=== PATIENT | female | born 1990 | race African-American/Black ===

== ENCOUNTER 2023-03-17 15:30 | Outpatient (RCR) | payer MEDICAID, SELFPAY | END 2023-03-27 23:59 | LOC: NS 15:30 | PROVIDERS: PCP Family Medicine; Referring Provider Nurse Practitioner Family; Visit Provider Nurse Practitioner Family | DX: Z71.3 Dietary counseling and surveillance (principal); E66.9 Obesity, unspecified; Z68.34 Body mass index [BMI] 34.0-34.9, adult; E28.2 Polycystic ovarian syndrome | CPT/HCPCS: 97802; 97803 ==

== ENCOUNTER 2023-04-16 10:41 | Outpatient (RCR) | payer MEDICAID, SELFPAY | END 2023-04-27 23:59 | LOC: NS 10:41 | PROVIDERS: PCP Family Medicine; Referring Provider Nurse Practitioner Family; Visit Provider Nurse Practitioner Family | DX: Z71.3 Dietary counseling and surveillance (principal); E28.2 Polycystic ovarian syndrome; E66.9 Obesity, unspecified; Z68.34 Body mass index [BMI] 34.0-34.9, adult ==

== ENCOUNTER 2023-06-03 02:29 | Emergency (ER) | payer MEDICAID, SELFPAY ==
[2023-06-03 02:30] VITALS: BP 145/89; PULSE 104; RESP 18; TEMP 36.2; O2SAT 100; BMI 33.6
--- NOTE | 2023-06-03 03:19 | EDS_ITS ---
HPI HPI - GI History of Present Illness Chief Complaint: Abd Pain Informant: patient Abdominal Pain/Flank Pain Onset: - (JPTA) Context: Sudden Onset Timing: - (once, constant, resolved after 10-20 min) Quality: - ( severe pain ) Location: Diffuse (periumbilical, w/ radiation into entire mid-low back) Current Severity: Gone Maximum Severity: 10/10 Worsened by: Nothing Relieved by: Nothing Nausea/Vomiting/Emesis GI Symptom: Negative for Nausea or Vomiting Diarrhea/Melena/Hematochezia GI Symptom: Negative for Diarrhea, Melena or Hematochezia Associated Symptoms Associated Symptoms: Negative for Dysuria, Frequency or Hematuria Narrative Narrative: 33-year-old female had a severe episode of diffuse abdominal pain radiating into her back that started 10 or 20 minutes ago, about a minute or 2 after she had what she thought was a normal bowel movement. Last meal was 4 or 5 hours prior. She has had a couple of other episodes of this within the past several weeks or month, but this 1 was more severe. Completely resolved now and she feels fine, she states it completely resolved upon arriving to the emergency room here. Is the first time she has been seen for it. The other episodes did not occur just after having a bowel movement like this winded. [facility] Medical History PCOS (polycystic ovarian syndrome) Home Medications bupropion HCl 150 mg tablet,12 hr sustained-release 150 mg PO DAILY 06/03/23 [History Last Taken Unknown] drospirenone 3 mg-ethinyl estradiol 0.02 mg tablet (Loryna (28)) 1 tab PO DAILY 06/03/23 [History Last Taken Unknown] metformin 500 mg tablet 500 mg PO DAILY 06/03/23 [History Last Taken Unknown] phentermine 37.5 mg tablet 37.5 mg PO DAILY 06/03/23 [History Last Taken Unknown] Allergy/AdvReac Type Severity Reaction Status Date / Time No Known Allergies Allergy Verified 06/03/23 02:33 Social History Smoking Status: Never smoker ROS ROS ED Constitutional Constitutional ED: Denies chills or fever(s) Eyes Eyes: Denies change in vision or diplopia ENT ENT ED: Denies rhinorrhea or sore throat Cardiovascular Cardiovascular: Denies chest pain or palpitations Respiratory/Chest Respiratory/Chest: Denies cough or dyspnea Gastrointestinal Gastrointestinal: Reports abdominal pain; Denies diarrhea, nausea or vomiting Genitourinary Genitourinary ED: Denies dysuria or hematuria Musculoskeletal Musculoskeletal: Reports back pain; Denies neck pain Integumentary Denies abscess or rash Neurologic Neurologic: Denies headache(s), paresthesias or weakness Psychiatric Psychiatric: Denies anxiety or suicidal thoughts EXAM Physical Exam Const Vital Signs: 06/03/23 02:30 Temperature 97.1 F L Temperature Source Temporal Pulse Rate 104 H Respiratory Rate 18 Blood Pressure 145/89 H Blood Pressure Mean 107 Pulse Ox 100 Oxygen Delivery Method Room Air Positive well nourished, well developed and obese General Appearance ED: well developed and NAD Nutritional Appearance: obese HEENT Reports moist mucous membranes normocephalic and atraumatic Eyes PERRL and EOMs intact bilaterally Neck full ROM and supple Resp normal respiratory effort and clear to auscultation bilaterally Cardio regular rate, regular rhythm and no murmurs GI non-tender and non-distended Auscultation: normoactive bowel sounds Palpation: soft Back/Spine no CVA tenderness General Back: other FROM Extremity normal to inspection General Extremety ED: Negative for edema, pulses abnormal or tenderness General Extremity: Negative for edema or pulses abnormal Neuro oriented x3, CN's II-XII intact bilaterally and no sensory deficits noted Sensorium / Orientation: awake and alert Motor Exam: strength 5/5 throughout Skin no rashes or lesions noted and no wounds MDM MDM MDM Narrative Medical decision making narrative: Patient is asymptomatic right now. In considering the possibility of biliary colic, I did a bedside ultrasound with our ED screening ultrasound machine since the patient presents around 3 AM and ultrasound is not available, and her benign abdomen with resolution of symptoms is not an indication for emergent CT right now although that was considered. On my interpretation, my right upper quadrant bedside ultrasound shows layering cholelithiasis. She has mild discomfort with performing sonographic Delgado, but has no true clinical Delgado sign. I do not see any thickening of the gallbladder wall or pericholecystic fluid. She does not have a classic story for biliary colic; she had last eaten for 5 hours prior to the onset of pain, it occurred just after a bowel movement, and it only lasted 10 or 20 minutes before completely resolving. However, it is possible that the nature of the discomfort was related to the cholelithiasis and it could have been based on body position changes if the stones are mobile. Her labs are normal including liver enzymes and lipase, and is negative ruling out ectopic. Since she is totally asymptomatic I do not think we need to admit her to the hospital or discussed the possibility of emergency/urgent surgery. She is in agreement. I will refer her to surgery as an outpatient and we discussed reasons to return. She is comfortable with that plan. History & Record Review Additional record(s) reviewed:: Other (imaging of abd: no priors) Lab Data Attestation: I reviewed the patient's lab results. Labs: Laboratory Results - last 24 hr 06/03/23 02:53 WBC 8.2 RBC 5.40 Hgb 12.6 Hct 39.7 MCV 73.5 L MCH 23.3 L MCHC 31.7 L RDW Std Deviation 42.9 RDW Coeff of Ida 16.5 H Plt Count 397 MPV 10.1 Immature Gran % (Auto) 0.400 Neut % (Auto) 45.7 L Lymph % (Auto) 45.4 H Stonewall % (Auto) 6.3 Eos % (Auto) 1.6 Baso % (Auto) 0.6 Absolute Neuts (auto) 3.8 Absolute Lymphs (auto) 3.73 Nucleated RBC % 0 Sodium 138 Potassium 3.4 L Chloride 107 Carbon Dioxide 25.0 Anion Gap 6 BUN 12 Creatinine 0.82 Estim Creat Clear Calc 109.19 Est GFR (MDRD) Af Amer 104 Est GFR (MDRD) Non-Af 86 BUN/Creatinine Ratio 14.7 Glucose 123 H Calcium 9.2 Total Bilirubin 0.20 AST 26 ALT 37 Alkaline Phosphatase 81 Total Protein 7.6 Albumin 3.5 Globulin 4.1 Albumin/Globulin Ratio 0.9 Lipase 43 Serum , Qual NEGATIVE Discharge Plan Triage Chief Complaint: Abd Pain ED Provider: Brad Nguyen Dx/Rx/DC Orders Clinical Impression: Diffuse abdominal pain, Cholelithiasis Instructions: Gallstones Dc Prescriptions: No Action bupropion HCl 150 mg tablet sustained-release 12 hr 150 mg PO DAILY Patient Comments: TAKE 1 TABLET BY MOUTH TWICE DAILY drospirenone-ethinyl estradiol [Loryna (28)] 3-0.02 mg tablet 1 tab PO DAILY Patient Comments: TAKE 1 TABLET BY MOUTH ONCE DAILY metformin 500 mg tablet 500 mg PO DAILY phentermine 37.5 mg tablet 37.5 mg PO DAILY Patient Comments: TAKE 1 TABLET BY MOUTH ONCE DAILY BEFORE BREAKFAST FOR 90 DAYS Primary Care Provider: Jenifer Carreon Referrals: Collin Varner MD [Med Staff - Active Staff] - As soon as possible (call for appt) Jenifer Carreon PA-C [Primary Care Provider] - Disposition Disposition: Home, Self Care
[2023-06-03 03:26] LABS: Absolute Lymphocyte Count 3.73 X10^3/uL (0.83-4.51); Absolute Neutrophil Count 3.8 X10^3/uL (2.0-7.7); Basophil# 0.05 X10^3/uL; Basophil% 0.6 % (0-1); Eosinophil# 0.13 X10^3/uL; Eosinophils% 1.6 % (0-5); Hematocrit 39.7 % (37-47); Hemoglobin 12.6 g/dL (12.0-15.0); Lymphocyte # 3.73 X10^3/ul (0.83-4.51); Lymphocyte % 45.4 % (19-41); Mean Corp Hgb Conc 31.7 g/dL (32-36); Mean Corpuscular Hgb 23.3 pg (27.0-32.0); Mean Corpuscular Volume 73.5 fL (81-99); Mean Platelet Vol. 10.1 fl (6.2-12.0); Monocyte# 0.52 X10^3/uL; Monocyte% 6.3 % (0-10); NRBC Flagged by Analyzer 0 % (0-5); Neutrophil # 3.75 X10^3/uL (2.7-7.7); Neutrophil % 45.7 % (47-70); Platelet Count 397 K/mm3 (150-450); RBC Distribution Width CV 16.5 % (11.6-14.6); RBC Distribution Width SD 42.9 fl (35.1-43.9); White Blood Count 8.2 K/mm3 (4.4-11.0)
--- OUTSIDE RECORDS SUMMARY | 2023-06-03 03:28 | XMS RPT_ITS | CCD ---
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 medication. Phentermine is a controlled substance. It is FDA approved for up to 3 months. Prescriptions may be refilled only a limited number of times. Keep a written list of all of your prescription and nonprescription ([id number]) medicines, in addition to vitamins, minerals, or other dietary supplements. If you are taking the extended-release (long-acting) tablets, do not split, chew, or crush them tablet. There are some tablets that can be crushed and mixed with food Alcohol can make the side effects of phentermine worse How should I monitor while on this medication? Please check your blood pressure (BP) and resting pulse weekly (twice a week in the first 2 weeks). If the BP is over 140/90 (either one), or if the resting pulse is over 96 per minute (count for 10 seconds and multiply by 6), then stop the medication and call your doctor. Continue to improve your dietary and physical activity habits as the combination works best while on this medication. Start out by taking the medication in the morning at least 30 minutes prior to meals. If the effect seems to wear off by dinner time, try taking it later in the morning, but taking too late may result in trouble falling asleep. Be sure to eat regular meals. Less hunger does not make it appropriate to skip meals. Monitor your caffeine intake and use of decongestants as they may worsen the effects of phentermine Make sure to have an eye exam, including the pressure in your eyes (intra-ocular pressure), once a year. What should I do if I forget a dose? Skip the missed dose and continue your regular dosing schedule the next day. Do not take a double dose to make up for a missed one. Sources [facility] Consumer Medication Info: http://www.ncbi.nlm.nih.gov/pubm edhealth/KEG2391506/ AMA patient handouts: http://www.amaassn.org/ama1/pub/ upload/mm/433/phrxsurgery.pdf Drugs.com: http://www.drugs.com/pro/phenter mine.html documented in this encounter [facility] 03-12-2023 History of Presen t illness Narrative Some documentation from previous visit of 01/30/2023 was copied and pasted, documentation has been reviewed and edited as necessary for today's visit. Patient Summary: Krys is a 32 year old Female who presents for follow-up evaluation of obesity/weight management to treat PCOS, hyperinsulinemia, possible ALEX, elevated LDL and prevent related co-morbidities. In our previous visits we have discussed lifestyle intervention including a nutrition recommendations and physical activity optimization. Her last office visit was 1.5 months ago. Assessment/plan from last visit: Considering early next year - would like to lose more weight before trying for HSAT - they have not contacted her as of yet Whole foods Consult [facility] nutrition - appointment done Metformin 1 gm twice a day She would like to wean off of sertraline if possible - taking 75 mg and plans to decrease to 50 mg Interval History B - 8 or 11 am Protein shake 30 gm 1 sugar S - none L - 1200-2 pm - egg bites large size S - 4 pm grapes D - 1830-8pm protein or tacos or fish with rice and vegetables or salad with rice and protein S - sometimes cookie and milk or ice cream Craving sweets Fluids - water, occasional diluted grape juice. Sprite if eating out She feels the medication is helping to decreasing appetite, not wanting constantly to eat. 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 Sleep consult Weight loss since last vist: 7 lb for total of 14 lbs 03/12/2023 198 lb BMI 32.95 phentermine 37.5 mg 01/30/2023 205 lb bupropion 150 mg bid 12/26/2022 212 lb BMI 35.28 WC 49in Metformin to 1 gm bid 5% weight loss = 202 lbs, 10% weight loss = 191 lbs Metformin Start date: ?12/26/2022 Start weight: ?212 lbs. Dose:1 gm twice a day -- Patient reports suppression of her appetite and increase in satiety since starting -- Patient reports no side effects after starting metformin Estimated Creatinine Clearance: 117.2 mL/min (based on SCr of 0.77 mg/dL). PAST MEDICAL HISTORY Diagnosis Date Blood loss anemia transfusion x 2 Depression with anxiety Elevated LDL cholesterol level Hyperinsulinemia 2022 PCOS (polycystic ovarian syndrome) depression (spontaneous vaginal delivery) Current Outpatient Medications Medication Sig Dispense Refill buPROPion SR (WELLBUTRIN SR) 150 mg 12 hr tablet Take 1 tablet by mouth two times a day. 180 tablet 0 sertraline (ZOLOFT) 50 mg tablet Take 50 mg by mouth once daily. 1.5 daily metFORMIN (GLUCOPHAGE) 500 mg tablet Take 1 tablet by mouth twice daily with meals. 180 tablet 3 Drospirenone-Ethinyl Estradiol (LOU, 28,) 3-0.02 mg per tablet Take 1 tablet by mouth once daily. 84 tablet 3 No current facility-administered medications for this visit. Current Contraception: combined hormonal contraceptives Obesity ROS/ FHx GEN: Fatigue:yes CV: HTN: yes gestational hypertension MSK: Joint Pain:yes Symptoms of PCOS: yes NEURO: Migraines/SCOTT: yes, SCOTT intermittently for months, sometimes in the morning BP 116/82 Pulse 97 Resp 18 Wt 198 lb (89.8 kg) LMP 02/28/2023 (Exact Date) BMI 32.95 kg/m Anti-Obesity Medications >Phentermine: No uncontrolled HTN, No CVD Hx or hx of seizure disorder. No MAOI inhibitor use. No drug abuse hx. Crcl > 15. Appointment on 01/16/2023 Component Date Value Ref Range Status Vitamin D 25 Hydroxy 01/16/2023 34.2 31.0 - 80.0 ng/mL Final Insulin 01/16/2023 41.7 (H) 3.0 - 25.0 mU/L Final Hemoglobin A1C 01/16/2023 5.6 4.3 - 5.6 % Final Estimated Average Glucose 01/16/2023 114 mg/dL Final Cholesterol, Total 01/16/2023 212 (H) <200 mg/dL Final Triglyceride 01/16/2023 142 <150 mg/dL Final HDL Cholesterol 01/16/2023 63 >39 mg/dL Final Non HDL Cholesterol 01/16/2023 149 (H) <130 mg/dL Final Fasting Time 01/16/2023 12 hrs Final VLDL Cholesterol 01/16/2023 28 <30 mg/dL Final TC:HDL Ratio 01/16/2023 3.37 <5.10 Final LDL Cholesterol 01/16/2023 121 (H) <100 mg/dL Final LDL:HDL Ratio 01/16/2023 1.92 <2.54 Final Protein, Total 01/16/2023 7.5 6.3 - 8.0 g/dL Final Albumin 01/16/2023 4.2 3.9 - 4.9 g/dL Final Calcium, Total 01/16/2023 9.3 8.5 - 10.2 mg/dL Final Bilirubin, Total 01/16/2023 0.3 0.2 - 1.3 mg/dL Final Alkaline Phosphatase 01/16/2023 92 34 - 123 U/L Final AST 01/16/2023 13 13 - 35 U/L Final ALT 01/16/2023 13 7 - 38 U/L Final Glucose 01/16/2023 99 74 - 99 mg/dL Final BUN 01/16/2023 11 7 - 21 mg/dL Final Creatinine 01/16/2023 0.77 0.58 - 0.96 mg/dL Final Sodium 01/16/2023 137 136 - 144 mmol/L Final Potassium 01/16/2023 4.1 3.7 - 5.1 mmol/L Final Chloride 01/16/2023 104 97 - 105 mmol/L Final CO2 01/16/2023 20 (L) 22 - 30 mmol/L Final Anion Gap 01/16/2023 13 9 - 18 mmol/L Final Estimated Glomerular Filtration Ra* 01/16/2023 105 >=60 mL/min/1.73m Final TSH 01/16/2023 1.130 0.270 - 4.200 mIU/L Final Iron 01/16/2023 47 41 - 186 ug/dL Final TIBC 01/16/2023 455 (H) 232 - 386 ug/dL Final Transferrin Saturation 01/16/2023 10.3 (L) 15.0 - 57.0 % Final Ferritin 01/16/2023 29.9 14.7 - 205.1 ng/mL Final Hospital Outpatient Visit on 12/20/2022 Component Date Value Ref Range Status Radiology Result 12/20/2022 ACTIONABLE (Actionable) Final Appointment on 12/12/2022 Component Date Value Ref Range Status WBC 12/12/2022 7.59 3.70 - 11.00 k/uL Final RBC 12/12/2022 5.21 (H) 3.90 - 5.20 m/uL Final Hemoglobin 12/12/2022 12.9 11.5 - 15.5 g/dL Final Hematocrit 12/12/2022 39.9 36.0 - 46.0 % Final MCV 12/12/2022 76.6 (L) 80.0 - 100.0 fL Final MCH 12/12/2022 24.8 (L) 26.0 - 34.0 pg Final MCHC 12/12/2022 32.3 30.5 - 36.0 g/dL Final RDW-CV 12/12/2022 14.9 11.5 - 15.0 % Final Platelet Count 12/12/2022 314 150 - 400 k/uL Final MPV 12/12/2022 9.6 9.0 - 12.7 fL Final Absolute nRBC 12/12/2022 <0.01 <0.01 k/uL Final Results Only on 12/07/2022 Component Date Value Ref Range Status Slitter Creaser Slotter Helper 12/07/2022 Final Value:Provider JOSE lombardi patient KRYS HUANG has not started their Doris program, time has . Doris program: [facility] WHAT TO EXPECT AT YOUR APPOINTMENT Assessment/Plan: Krys Huang is a 32 year old yo with Class II obesity who presented today for follow up for supervised weight loss to treat and prevent related co-morbidities. ASSESSMENT/PLAN: 1. PCOS (polycystic ovarian syndrome) - ICD9: 256.4, ICD10: E28.2 (primary diagnosis) - Metformin 1 gm twice a day - PHENTERMINE 37.5 MG TABLET - Nutrition consult Whole food balanced protein low-carb nutrition 2. Hyperinsulinemia - ICD9: 251.1, ICD10: E16.1 - Metformin - Nutrition consult Whole food balanced protein low-carb nutrition 3. Elevated LDL cholesterol level - ICD9: 272.0, ICD10: E78.00 Whole food balanced protein low-carb nutrition 4. Depression with anxiety - ICD9: 300.4, ICD10: F41.8 - continue sertraline for now - BUPROPION HCL SR 150 MG TABLET,12 HR SUSTAINED-RELEASE 5. Loud snoring - ICD9: 786.09, ICD10: R06.83 - HSAT - CONSULT TO SLEEP MEDICINE - ADULT - PHENTERMINE 37.5 MG TABLET 6. Daytime sleepiness - ICD9: 780.54, ICD10: R40.0 - HSAT - CONSULT TO SLEEP MEDICINE - ADULT - PHENTERMINE 37.5 MG TABLET 7. Craving for particular food - ICD9: 783.9, ICD10: R63.8 - BUPROPION HCL SR 150 MG TABLET,12 HR SUSTAINED-RELEASE - PHENTERMINE 37.5 MG TABLET 8. Class 1 obesity with body mass index (BMI) of 34.0 to 34.9 in adult, unspecified obesity type, unspecified whether serious comorbidity present - ICD9: 278.00, V85.34, ICD10: E66.9, Z68.34 Weight decreasing - continue metformin 1 gm twice a day - BUPROPION HCL SR 150 MG TABLET,12 HR SUSTAINED-RELEASE - CONSULT TO SLEEP MEDICINE - ADULT - PHENTERMINE 37.5 MG TABLET Phentermine. Risk/benefits discussed at length including potential side effects of increased anxiety, insomnia, increased heart rate, and increased blood pressure. I have asked the patient to monitor blood pressure and avoid any stimulants (in the form of caffeinated beverages like coffee, tea, sports drinks) initially. Patient denies history of arrhythmias, coronary artery disease (atherosclerosis), heart failure, pulmonary hypertension, stroke, valvular heart disease (prolapse, regurgitation, stenosis). The patient is currently enrolled in a diet and exercise program The patient has no known history of contraindications The patient is free from drug or ETHO abuse The patient is not or and is aware not to become while using this medication [place] was reviewed. PDMP website checked and validated. All prescriptions have been APPROPRIATELY filled. No suspicious activity was identified. Prescription instructions reviewed with patient as applicable. Potential red flag symptoms discussed with the patient. Reviewed appropriate action plan to take if red flag symptoms occur. Patient agreeable to treatment plan. Follow up in 2-3 months Paola Reid APRN.YING, Advanced Education from the [employer] Medical Decision Making: Problems: Moderate: 1+ chronic illnesses with change Risk: Moderate: Drug management Medical Decision Making Level: 4 - Moderate documented in this encounter [facility] 03-12-2023 Miscellaneous Notes Patient called back and is able to come at 1230 today now. Brittney Garvin RN Patient called. She is unable to come in earlier today for her wt management visit. No other openings from now until provider's leave. Please advise if patient can still come in at scheduled time today. Yeimy Sams RN documented in this encounter [facility] 03-06-2023 Note HNO ID: [id number] Author: Delfino Rodriguez MD Service: ? Author Type: Physician Type: Progress Notes Filed: 03/06/2023 2:34 PM Note Text: Krys is a 32 year old who presents today for an endometrial biopsy for abnormal uterine bleeding. test: negative UNIVERSAL PROTOCOL / SAFETY CHECKLIST Procedure to be Performed: EMB Sign In: A Moment of CARE was completed. Personnel directly involved with the procedure wore the appropriate PPE (Personal Protective Equipment). Patient/Surrogate Stated/Verified: PATIENT VERIFIED(optional for EMERGENT procedures): Patient name, Date of , Relevant allergies, and The intended procedure Time Out Communication: Intended patient and procedure match the source documents. Consent documented and matches the intended procedure. Sign Out: SIGN OUT (optional for EMERGENT procedures): All specimen containers correctly labeled. PROCEDURE: EXTERNAL GENITALIA: Normal in appearance without lesions VAGINA: Normal in appearance without lesions BIOPSY: Speculum placed into the vagina with excellent visualization of the cervix. Cervix cleaned with betadine. Uterus sounded to 7.5 cm. Pipelle inserted into the uterus without difficulty and endometrial biopsy obtained. Specimen labeled and sent to pathology. Hemostasis achieved. Procedure Summary: Patient tolerated procedure well. ASSESSMENT: abnormal uterine bleeding PLAN: Specimens labeled and sent to Pathology. Will notify patient of results in 1-2 weeks. Delfino Grullon MD [facility] 03-06-2023 Instructions Sirena Mckeon Ma - 03/06/2023 1:58 PM EST YOUR RECOVERY After your biopsy you may have: Vaginal bleeding (less than a normal menstrual period) Mild cramping Do NOT put anything in the vagina for 1 week after your endometrial biopsy. This includes: tampons douches and refraining from having sexual intercourse If you have any discomfort, you may take an over the counter pain medication (motrin, advil, ibuprofen, tylenol, etc). If this does not relieve your discomfort, contact the office. It is okay to wear a sanitary pad until the discharge and spotting stops. RISKS Although problems seldom occur with endometrial biopsies, there can be some complications. You may feel faint during and shortly after the procedure as well as have some bleeding after the procedure. There is also a risk of infection after the procedure. These complications are rare and can be easily treated. You should contact you doctor is you have any of the following: Heavy bleeding (more than your normal period) Bleeding with clots Severe abdominal pain Fever (more than 100.4F) Foul smelling vaginal discharge RESULTS We will have the results of your biopsy in 1-2 weeks. If you do not hear the results of your biopsy after 2 weeks, please contact the office for the results. If you have any additional questions or concerns please do not hesitate to contact the office. documented in this encounter [facility] 03-06-2023 History of Presen t illness Narrative Krys is a 32 year old who presents today for an endometrial biopsy for abnormal uterine bleeding. test: negative UNIVERSAL PROTOCOL / SAFETY CHECKLIST Procedure to be Performed: EMB Sign In: A Moment of CARE was completed. Personnel directly involved with the procedure wore the appropriate PPE (Personal Protective Equipment). Patient/Surrogate Stated/Verified: PATIENT VERIFIED(optional for EMERGENT procedures): Patient name, Date of , Relevant allergies, and The intended procedure Time Out Communication: Intended patient and procedure match the source documents. Consent documented and matches the intended procedure. Sign Out: SIGN OUT (optional for EMERGENT procedures): All specimen containers correctly labeled. PROCEDURE: EXTERNAL GENITALIA: Normal in appearance without lesions VAGINA: Normal in appearance without lesions BIOPSY: Speculum placed into the vagina with excellent visualization of the cervix. Cervix cleaned with betadine. Uterus sounded to 7.5 cm. Pipelle inserted into the uterus without difficulty and endometrial biopsy obtained. Specimen labeled and sent to pathology. Hemostasis achieved. Procedure Summary: Patient tolerated procedure well. ASSESSMENT: abnormal uterine bleeding PLAN: Specimens labeled and sent to Pathology. Will notify patient of results in 1-2 weeks. Delfino Grullon MD documented in this encounter [facility] 01-30-2023 Note HNO ID: [id number] Author: Paola Reid APRN.HIGHWAY INSPECTOR Service: ? Author Type: Nurse Practitioner Type: Progress Notes Filed: 01/30/2023 8:23 PM Note Text: Some documentation from previous visit of 12/26/2022 was copied and pasted, documentation has been reviewed and edited as necessary for today's visit. Patient Summary: Krys is a 32 year old Female who presents for follow-up evaluation of obesity/weight management to treat PCOS, hyperinsulinemia, possible ALEX, elevated LDL and prevent related co-morbidities. In our previous visits we have discussed lifestyle intervention including a nutrition recommendations and physical activity optimization. Her last office visit was 1 month ago. Assessment/plan from last visit: discontinued HSAT - needs to schedule Whole foods Consult [facility] nutrition - appointment 02/10/2023 Metformin She would like to wean off of sertraline if possible. Interval History Has stopped drinking coffee due to amount of creamer she likes B - Protein shake 20 gm 1 sugar S - varies leftovers L - leftovers or tuna or oatmeal or shrimp/chicken salad or egg with toast S - watermelon or dry cereal with milk D - protein or tacos or fish with rice and vegetables S - not often or ice cream Craving sweets Fluids - water, grape juice She feels the medication is helping to decreasing appetite, not wanting constantly to eat. 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 HSAT Weight loss since last vist: 7 lb 01/30/2023 205 lb 12/26/2022 212 lb BMI 35.28 WC 49in Metformin increased 1 gm bid 5% weight loss = 202 lbs, 10% weight loss = 191 lbs Metformin Start date: ?12/26/2022 Start weight: ?212 lbs. Dose:1 gm twice a day -- Patient reports suppression of her appetite and increase in satiety since starting -- Patient reports no side effects after starting metformin Estimated Creatinine Clearance: 120.4 mL/min (based on SCr of 0.77 mg/dL). PAST MEDICAL HISTORY Diagnosis Date Blood loss anemia transfusion x 2 Depression with anxiety Elevated LDL cholesterol level Hyperinsulinemia 2022 PCOS (polycystic ovarian syndrome) depression (spontaneous vaginal delivery) Current Outpatient Medications Medication Sig Dispense Refill sertraline (ZOLOFT) 50 mg tablet Take 50 mg by mouth once daily. 1.5 daily metFORMIN (GLUCOPHAGE) 500 mg tablet Take 1 tablet by mouth twice daily with meals. 180 tablet 3 Drospirenone-Ethinyl Estradiol (LOU, 28,) 3-0.02 mg per tablet Take 1 tablet by mouth once daily. 84 tablet 3 No current facility-administered medications for this visit. Current Contraception: combined hormonal contraceptives Obesity ROS/ FHx GEN: Fatigue:yes CV: HTN: yes gestational hypertension MSK: Joint Pain:yes Symptoms of PCOS: yes NEURO: Migraines/SCOTT: yes, SCOTT intermittently for months, sometimes in the morning BP 110/72 Pulse 78 Resp 16 Ht 5' 5 (1.651 m) Wt 205 lb (93 kg) LMP 01/04/2023 (Exact Date) SpO2 98% No BMI 34.11 kg/m? Appointment on 01/16/2023 Component Date Value Ref Range Status Vitamin D 25 Hydroxy 01/16/2023 34.2 31.0 - 80.0 ng/mL Final Insulin 01/16/2023 41.7 (H) 3.0 - 25.0 mU/L Final Hemoglobin A1C 01/16/2023 5.6 4.3 - 5.6 % Final Estimated Average Glucose 01/16/2023 114 mg/dL Final Cholesterol, Total 01/16/2023 212 (H) <200 mg/dL Final Triglyceride 01/16/2023 142 <150 mg/dL Final HDL Cholesterol 01/16/2023 63 >39 mg/dL Final Non HDL Cholesterol 01/16/2023 149 (H) <130 mg/dL Final Fasting Time 01/16/2023 12 hrs Final VLDL Cholesterol 01/16/2023 28 <30 mg/dL Final TC:HDL Ratio 01/16/2023 3.37 <5.10 Final LDL Cholesterol 01/16/2023 121 (H) <100 mg/dL Final LDL:HDL Ratio 01/16/2023 1.92 <2.54 Final Protein, Total 01/16/2023 7.5 6.3 - 8.0 g/dL Final Albumin 01/16/2023 4.2 3.9 - 4.9 g/dL Final Calcium, Total 01/16/2023 9.3 8.5 - 10.2 mg/dL Final Bilirubin, Total 01/16/2023 0.3 0.2 - 1.3 mg/dL Final Alkaline Phosphatase 01/16/2023 92 34 - 123 U/L Final AST 01/16/2023 13 13 - 35 U/L Final ALT 01/16/2023 13 7 - 38 U/L Final Glucose 01/16/2023 99 74 - 99 mg/dL Final BUN 01/16/2023 11 7 - 21 mg/dL Final Creatinine 01/16/2023 0.77 0.58 - 0.96 mg/dL Final Sodium 01/16/2023 137 136 - 144 mmol/L Final Potassium 01/16/2023 4.1 3.7 - 5.1 mmol/L Final Chloride 01/16/2023 104 97 - 105 mmol/L Final CO2 01/16/2023 20 (L) 22 - 30 mmol/L Final Anion Gap 01/16/2023 13 9 - 18 mmol/L Final Estimated Glomerular Filtration Ra* 01/16/2023 105 >=60 mL/min/1.73m? Final TSH 01/16/2023 1.130 0.270 - 4.200 mIU/L Final Iron 01/16/2023 47 41 - 186 ug/dL Final TIBC 01/16/2023 455 (H) 232 - 386 ug/dL Final Transferrin Saturation 01/16/2023 10.3 (L) 15.0 - 57.0 % Final Ferritin 01/16/2023 29.9 14.7 - 205.1 ng/mL Final Hospital Outpatient Visit on 12/20/2022 Component Date Value Ref Range Status Radiolo (more content not included)... [facility] 01-24-2023 Note HNO ID: [id number] Author: Zully Shannon RDMS Service: ? Author Type: Income Tax Consultant Type: Progress Notes Filed: 01/24/2023 11:45 AM Note Text: Radiology Service Progress Note PATIENT NAME: Krys Huang DATE OF SERVICE: January 24, 2023 TIME: 11:44 AM PATIENT IDENTITY VERIFICATION COMPLETED USING TWO (2) IDENTIFIERS: Name and Date of confirmed by patient verbally. FALL SCREENING: Has the patient had 2 falls in the last year or 1 fall with injury or currently using an Ambulatory Assistive Device (Walker, Cane, Wheelchair, Crutches, etc.)? No PATIENT GENDER DATA: Female. status: : No status: NO. PATIENT RELEVANT IMPLANT DATA REVIEWED: Not Applicable RADIOLOGY DEPARTMENT: Ultrasound PERIPHERAL IV DATA: Not applicable SIGNED BY: Zully Shannon RDMS RVT January 24, 2023 11:44 AM [facility] 01-24-2023 History of Presen t illness Narrative Radiology Service Progress Note PATIENT NAME: Krys Huang DATE OF SERVICE: January 24, 2023 TIME: 11:44 AM PATIENT IDENTITY VERIFICATION COMPLETED USING TWO (2) IDENTIFIERS: Name and Date of confirmed by patient verbally. FALL SCREENING: Has the patient had 2 falls in the last year or 1 fall with injury or currently using an Ambulatory Assistive Device (Walker, Cane, Wheelchair, Crutches, etc.)? No PATIENT GENDER DATA: Female. status: : No status: NO. PATIENT RELEVANT IMPLANT DATA REVIEWED: Not Applicable RADIOLOGY DEPARTMENT: Ultrasound PERIPHERAL IV DATA: Not applicable SIGNED BY: Zully Shannon RDMS RVT January 24, 2023 11:44 AM documented in this encounter [facility] 12-26-2022 Note HNO ID: [id number] Author: Paola Reid APRN.HIGHWAY INSPECTOR Service: ? Author Type: Nurse Practitioner Type: Progress Notes Filed: 12/26/2022 2:32 PM Note Text: Patient Summary: Krys Huang is a 32 year old female with obesity who presents for an initial evaluation of overweight/obesity to treat and prevent co-morbidities and is interested in combination of behavioral and pharmacological. Motivation for seeking treatment for the disease of overweight/obesity : improve health and love her body again Goal weight: 145-150 Lowest recall weight: 145 Highest recall weight: 212 Patient identified barriers to weight loss: time, craving, lack of energy and motivation, likes to eat large portions Weight History: She reports no family history of obesity and early adulthood weight gain. She states her weight gain is related to the following factors, including weight retention , exposure to a weight gain promoting medication - antidepressants, reduced physical activity, and consumption of unhealthy foods. - Last Wt 12/26/22 : 212 lb (96.2 kg) 5% weight loss = 202 lbs, 10% weight loss = 191 lbs Diet/Nutrition overview: large portions, eats because she enjoys certain foods. Awake - 0500, sometimes oatmeal B - -1099 - 4 coffees with a lot of flavored sweetened creamer. Sometimes eats Eggs or smoothie scoop protein, 1% LF milk, strawberries, blueberries, macha, spinach, sometimes banana S - sometimes salad with Sweet onion dressing or balsamic dressing or chicken nuggets or leftover rice or taco wrap L - 1-2 pm Paul beef hosea has baked crust and sweets or quiche with daugherty on WE S - sometimes watermelon D - 6-8 pm protein, salad, rice or pizza, or Mongolian Gen Wood Cabinetmaker's with FR S - sometimes cookies and milk or ice cream Fluids - coffee with creamer, water, occasionally regular Sprite Bedtime - 2130-midnight Quality of diet: 24hr recall suggests unhealthy diet. Characterization of diet:Structured, unhealthy snacking, excessive cravings, evening snacking, and increased consumption of sugar sweetened beverages. Applied Technologist of impaired eating habits:lack of satiety and boredom Eating Disorder no Cravings: cookies and milk, ice cream Sleep: Duration: 5-7 hours of interrupted sleep due to baby. ALEX not diagnosed ; CPAP NO + loud snoring, sometimes awakens with headache STOP BANG Questionnaire 1. Snoring Do you snore loudly (louder than talking or loud enough to be heard through closed doors)? YES 2. Tired Do you often feel tired, fatigued, or sleepy during daytime? YES 3. Observed Has anyone observed you stop breathing during your sleep? NO 4. Blood Pressure Do you have or are you being treated for high blood pressure? NO 5. BMI BMI more than 35 kg/m2? YES 6. Age Age over 50 yr old? NO 7. Neck circumference Neck circumference greater than 40 cm? YES 8. Gender Gender male? NO * Neck circumference is measured by staff High risk of ALEX: answering yes to three or more items Low risk of ALEX: answering yes to less than three items Stress: Stress:no Obesity Related Comorbidities: Prior Weight Loss Surgery:No PAST MEDICAL HISTORY Diagnosis Date Blood loss anemia transfusion x 2 PCOS (polycystic ovarian syndrome) (spontaneous vaginal delivery) PAST SURGICAL HISTORY Procedure Laterality Date NONE FAMILY HISTORY Problem Relation Age of Onset Diabetes Mother No Known Problems Father No Known Problems Sister No Known Problems Sister No Known Problems Brother No Known Problems Brother Diabetes Maternal Grandmother No Known Problems Maternal Grandfather Diabetes Paternal Grandmother No Known Problems Paternal Grandfather Social History Tobacco Use Smoking status: Former Types: Cigarettes Smokeless tobacco: Never Vaping Use Vaping Use: Never used Substance Use Topics Alcohol use: Yes Comment: occasional Drug use: Never Medications: Metformin Weight Promoting Medications: SSRI sertraline Diet/weight loss History: Past weight loss attempts? self-directed, exercise program, and anti-obesity medications Metformin. Caloric restriction, Diet pills, Exercise/increased activity, Keto, Low Carbohydrate diet, MyFitnessPal, Self-directed diets such as high protein low carb, and Slimfast Exercise: Regular exercise: no Strength/resistance exercise:no Barriers to regular exercise? 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 [facility] 12-26-2022 Instructions Paola Reid APRN.[facility] - 12/26/2022 1:05 PM EDT Images from the original note were not included. Make appt with [facility] nutrition Make appt for endometrial biopsy Make repeat pelvic US after a menses. Weight Management: You have taken the initiative to become a healthier version of yourself and to decrease the risks that come with the diagnosis of obesity or being overweight. We are happy to help you along this journey but know this is a lifetime commitment to yourself. Losing just 3-10 % of your body weight can decrease your risks of many other serious diseases like diabetes, heart disease, osteoarthritis, hypertension, cancer and so many others. During this time you will have triumphs, setbacks and plateaus- your body will fight against you but we are here to give you the tools and the resources to continue to reach your goals. We recommend during this time that you track your weight daily or at least five times per week as well as tracking your nutrition. You may track your activity but do not use hitting your fitness goals as a reward system as this can derail your success. We recommend weekly physical activity of 150-200 min/week-although physical exercise can help with maintaining weight loss it adds only a little benefit for long-term weight loss success. However, exercise can have many other benefits including improving mental health and cardiovascular health. Do not feel overwhelmed- we will discuss this more at your visits. Our time will be limited with each visit but we will try to touch on factors that are important to you and to your overall goals. We will try to set a goal at the end of each visit and then decide on what we want to accomplish with your upcoming visits. On your After Visit Summary (AVS), we will provide you with information that may be useful during this journey so please remember to read the information given. Check your AVS a few days after your appointment because we may have added more information specifically for you. Remember that if you are placed on medications, they are tools that can help you succeed but you must put in the work. Your nutrition will be the main factor. There are medications that work well for some and not for others- so it may take time to find the right combination for your body's needs. Please remember that factors such as other health co-morbidities one might have, as well as insurance coverage, will play a factor in determining which medications you can take. Most of the newer medications that are all the craze ,injectables, may not be covered or will only be covered if you fail months of oral medications- so please be patient with the process. It would be beneficial for you to determine what your insurance covers as far as Anti-Obesity Medications (AOMs), Nutritional Counseling, behavioral intervention and weight loss surgery. Please call your health insurance prior to your first appointment and write down coverage for each of those therapies. Most importantly, remember that ultimately our goal is to help you get to a healthier weight which will decrease your overall health risks. We will work together as a team and try to reach your personalized goals as well. We appreciate that you have entrusted us with your health and know that we are committed to this process with you. Obesity Obesity is a disease that affects nearly one-third of the adult [place] population (approximately 60 million). The number of overweight and obese Americans has continued to increase since 1959, a trend that is not slowing down. Today, 64.5 percent of adult Americans (about 127 million) are categorized as being overweight or obese. Each year, obesity causes at least 300,000 excess deaths in the [place] and healthcare costs of [place] adults with obesity amount to approximately $100 billion. (AOA) Obesity is a complex, multi-factorial chronic disease involving: Environmental (social and cultural) The tendency toward obesity is a result of our environment: lack of physical activity along with high-calorie, low-cost foods. Home, work, school, and even the community can inhibit a healthy lifestyle. Genetic (Hereditary plays a large role in determining how susceptible people are to overweight and obesity). Genes also influence how the body yin calories for energy and stores fat. Physiologic, metabolic, behavioral (eating too many calories while not getting enough exercise) and psychological components. It is the second leading cause of preventable in the [place] Behavioral changes brought on by economic development, modernization and urbanization have been linked to the rise in global obesity. Calculating BMI Body Mass Index (BMI) is a measurement tool used to determine excess body weight. Overweight is defined as a BMI of 25 or more, obesity is 30 or more, and severe obesity is 40 or more. You can visit www.nhlbi.nih.gov to estimate your BMI. Obesity Related Health Conditions The morbidity and mortality risk from being overweight is proportional to its degree. Individuals with morbid obesity, therefore, have the highest risk for developing numerous illnesses that often reduce mobility and quality of life due to their excess weight. In particular, type 2 diabetes, gallbladder disease and osteoarthritis have been found to increase concurrently with higher BMI. Premature , a 20-year shorter life span, has also been found in individuals with morbid obesity. All of the systems that make the body function are affected by morbid obesity. Type 2 diabetes Gallbladder disease and gallstones Liver disease Osteoarthritis, a disease in which the joints deteriorate. This is possibly the result of excess weight on the joints. Gout, another disease affecting the joints Pulmonary (breathing) problems, including sleep apnea in which a person can stop breathing for a short time during sleep Reproductive problems in women, including menstrual irregularities and infertility Gastroesophageal reflux/heartburn Hypertension Heart Disease Depression Psychological disorders/social impairments Urinary Stress Incontinence Obesity is also linked to higher rates of certain types of cancer. Obese men are more likely than non-obese men to from cancer of the colon, rectum, or prostate. Obese women are more likely than non-obese women to from cancer of the gallbladder, breast, uterus, cervix, or ovaries [email or web address] [email or web address]-dxup ytbdco-[email or web address]-cloaxrjrw Sincerely, Delfino Gerardo MD, FACOG & Paola Reid CNP Nutrition - Eat primarily whole foods. Limit carbs, especially processed carbs. - Do not drink your calories - 30 grams of protein for breakfast decreases your hunger during the day by up to 40 % Premier Protein or generic 30 gm protein 1 gm sugar - Walk for 15 minutes immediately a meal. A Closer Look at Medical Weight-loss Medications: Phentermine (Adipex , Lomaira and Suprenza ) The average weight-loss results from prescription weight-loss drugs are 5-10% of your starting weight. It is important to know that everyone responds differently to medications. The average result will be seen by most people who take the medication, while others will see a larger amount of weight-loss or none at all. How does it work? Phentermine is a weight-loss medication that is available by prescription only and has been FDA-approved since 1959. It works on chemicals in your brain to decrease your appetite and includes a mild stimulant to give you energy. Phentermine is a pill taken once a day in the morning and is intended for short-term use. Common side effects are dry mouth and sleepiness. Weight-loss: The average weight-loss is 4-5% of your initial body weight after one year. For a person weighing 200 pounds, that means about a 10- pound weight-loss. Concerns: The stimulant may increase your blood pressure and heart rate, so you must be monitored by an HCP who is experienced in prescribing this medication. Patients with some heart conditions (such as uncontrolled blood pressure), glaucoma, stroke, or overactive thyroid should avoid this medication. Orlistat (Xenical and Skip ) How does it work? Orlistat is available edun-khm-migwraq as skip and in a higher-dose by prescription called Xenical . Both are FDA-approved for weight-loss and work by decreasing the amount of fat your body absorbs. It is taken three times per day before meals that contain dietary fat. Orlistat allows your body to only absorb 2/3 of the calories from the fat consumed in your meal. The other 1/3 is carried away indigestion and becomes part of your stool. More information can be found at Zenops. Weight-loss: The average weight-loss is 5% of your initial body weight. For a person weighing 200 pounds, that means about a 10- pound weight-loss. Concerns: This medication does not work well for people already eating a low-fat diet as their calories from fat are already low. People taking Orlistat should take a multivitamin as there is a chance for vitamin deficiency. Side effects are limited but can include cramps, gas, stool leakage, oily spotting, and gas with discharge. These symptoms will improve with a lower-fat diet. Naltrexone HCI/Bupropion HCI (Contrave ) $99/month How does it work? Contrave was approved by the FDA in 2013 and is a combination of two medications approved for other medical conditions. Naltrexone is a medication previously aproved for the treatment of narcotic and alcohol dependency. Bupropion is approved as an anti-depressant and a medication to help people stop smoking. When used together, they work to decrease appetite and control eating. Weight-loss: Among individuals who took Contrave for one year, 65% lost at least 5% of their initial body weight (10-pound weight loss for a person who weighs 200 pounds) and 39% lost at least 10% of their body weight (20 pound weight-loss for a person who weighs 200 pounds). Concerns: The most common side effects are nausea, constipation, headache, dry mouth, vomiting, and dizziness. This medication also had a small occurrence (6%) of increased blood pressure and heart rate. Phentermine-Topiramate ER (Qsymia ) $99-$150/month How does it work? This combination of medication was approved by the FDA in 2011. Phentermine is a weight-loss drug that received FDA approval in 1959. Topiramate is traditionally used for migraine prevention and in seizure prophylaxis. Together, they work to decrease your appetite and increase a feeling of fullness after eating. Weight-loss: Weight loss can vary by dosage. At the lower dose, 62% of individuals on Qsymia lost 5% of their starting body weight. (10-pound weight loss for a person who weighs 200 pounds). Among people taking the higher dose, 48% lost 10% of their starting weight (20-pound weight loss for a person who weighs 200 pounds). Concerns: The most common side effects are dry mouth, constipation, and yhvg-exp-avnwwxt feelings in the face, arms, hands, and feet. Insomnia may occur if taken later in the day. Women who are or who are considering becoming should not take Qsymia as it has been known to cause defects. Liraglutide Injection (Saxenda ) How does it work? Liraglutide is an injectable medication that was approved by the FDA in 2013. It works by increasing your body s natural production of insulin, which regulates blood sugar levels. It also decreases the production of a hormone that opposes insulin, slows down the emptying of the stomach, and helps regulate fullness. It is also used to treat type 2 diabetes. Weight-loss: In a study of individuals who were on Saxenda for one year, 73% lost at least 5% of their starting body weight (10-pound weight loss for a person who weighs 200 pounds), and 41% lost at least 10% of their initial body weight (20-pound weight loss for a person who weighs 200 pounds). Concerns: The most common side effects are nausea, vomiting, diarrhea, and constipation. Semaglutide Injection (Wegovy ) How does it work? Wegovy is an injectable prescription medicine used for adults with obesity or overweight (excess weight) who also have weight-related medical problems to help them lose weight and keep the weight off.Medically speaking, Wegovy is a svvuqsii-bxep-dntmoim-1 (GLP-1) receptor agonist that is engineered in the laboratory. What this means is that Wegovy mimics the naturally occurring GLP-1 hormone that is released by our intestines into our bloodstream within minutes after we ingest food. Weight-loss: The effectiveness and safety of Wegovy have been demonstrated in the Semaglutide Treatment Effect for People with Obesity (STEP) program. The four STEP studies involved 4,500 individuals from around the world that were either affected by obesity or classified as overweight with co-existing medical conditions resulting from their excess weight. The average weight-loss was 15 to 17% of the individual s starting weight. For an individual who weighs 230 lbs.,this translates into a 35 to 39 lb. weight-loss. In the STEP 1 study, one-third of individuals were able to lose at least 20% of their weight. Concerns: The most common side effects are nausea, diarrhea, vomiting and constipation. https://www.obesityaction.org/ed ucation-support/treatment/medica a-dauvhi-hylzfmgqax/ Metformin How does it work? Metformin helps to lower blood glucose levels by reducing the amount of glucose produced and released by the liver, and by increasing insulin sensitivity. It has now been proven to prevent or delay diabetes. Metformin and Type 2 Diabetes Prevention Diabetes Spectrum (diabetesjournals.org) Weight loss: Large cohort studies have shown weight loss benefits associated with metformin therapy. Emerging evidence suggests that metformin-associated weight loss is due to modulation of hypothalamic appetite-regulatory centers, alteration in the gut microbiome, and reversal of consequences of aging. Metformin is also being explored in the management of obesity s sequelae such as hepatic steatosis, obstructive sleep apnea and osteoarthritis. Effectiveness of metformin on weight loss in non-diabetic individuals with obesity - PubMed (nih.gov) Is metformin a wonder drug? - [facility] Concerns: Most common side effects of this medication include nausea, changes in bowel habits, abdominal discomfort, and flatulence. Taking the medication with food will help. Side effects also typically get better with time. Rarely, a severe side effect called lactic acidosis can occur. If you experience malaise, muscle aches, difficulty breathing, or severe abdominal pain, please seek immediate medical attention. Plentity (around $100 per month) How does it work? Plentity is an FDA-cleared, prescription-only aid for weight management. It is made from naturally derived building blocks--cellulose and citric acid. Taken with water 20 minutes before lunch and dinner, Plenity helps you feel full, eat less, and lose weight. Weight loss: In a clinical study,* nearly 6 out of 10 people who took Plenity lost at least 5% of their body weight. Their average weight loss was 10% (about 22 pounds). individuals on Plenity lost on average 6% vs individuals on placebo, who lost on average 4%. How Plenity Works The Plenity weight loss pill is made from cellulose and citric acid. The patient ingests 3 tablets and 16 oz of water before lunch and dinner. Plenity tablets swell 100 times their original size, taking more space in the stomach and gives the user a feeling of fullness (satiety). After that, it moves through the intestines and passes with bowel movements. Plenity s Side Effects Since Plenity isn t absorbed by the body, side effects are less common than other weight loss medications. Possible side effects of Plenity include:abdominal pain, bloating, constipation, cramping, diarrhea, gas, irregular bowel movements. Buproprion (Wellbutrin) How does it work? It stimulates noradrenaline, dopamine, and (less-so) serotonin receptors. This gives you more energy, suppresses your appetite, and enhances your mood. Stress increases cortisol and ghrelin which stimulate your appetite. Dopamine and noradrenaline suppress your appetite. Does Bupriopion cause weight loss? It can. Bupropion (the generic form of Wellbutrin) was initially prescribed as an antidepressant. It is the only antidepressant associated with weight loss (Jose-Pedrero, 2019). Healthcare providers noticed that mostly pleasant side effect, and today bupropion is sometimes prescribed as part of a medication for weight loss (naltrexone/bupropion, brand name Contrave), as well as a stop-smoking aid (brand name Zyban). A 2016 study that analyzed the long-term weight loss effect of various antidepressant medications found that non-smokers who took bupropion lost 7.1 pounds over two years. (This effect was not seen in smokers). Users of the other antidepressants in the study gained weight (Arterburn, 2016). Bupropion seems to be effective for weight-loss maintenance as well. A 2012 study found that obese adults who took bupropion SR (standard release) in 300mg or 400mg doses lost 7.2% and 10% of their body weight, respectively, over 24 weeks and maintained that weight loss at 48 weeks (Artemio, 2012). And a 2019 review of 27 studies on antidepressants and weight gain found that antidepressant use increases body weight by an average of 5%--except bupropion, which is associated with weight loss (Amena, 2019). Concerns: Side effects can include headache, weight loss, dry mouth, trouble sleeping (insomnia), nausea, dizziness, constipation, fast heartbeat, increased blood pressure, and sore throat. These will often improve over the first week or two as you continue to take the medication. https://ro.co/health-guide/brianb ilwjb-dvv-omaein-loss/ [email or web address]/[email or web address]-flpr-tygxv documented in this encounter [facility] 12-26-2022 History of Presen t illness Narrative Patient Summary: Krys Huang is a 32 year old female with obesity who presents for an initial evaluation of overweight/obesity to treat and prevent co-morbidities and is interested in combination of behavioral and pharmacological. Motivation for seeking treatment for the disease of overweight/obesity : improve health and love her body again Goal weight: 145-150 Lowest recall weight: 145 Highest recall weight: 212 Patient identified barriers to weight loss: time, craving, lack of energy and motivation, likes to eat large portions Weight History: She reports no family history of obesity and early adulthood weight gain. She states her weight gain is related to the following factors, including weight retention , exposure to a weight gain promoting medication - antidepressants, reduced physical activity, and consumption of unhealthy foods. - Last Wt 12/26/22 : 212 lb (96.2 kg) 5% weight loss = 202 lbs, 10% weight loss = 191 lbs Diet/Nutrition overview: large portions, eats because she enjoys certain foods. Awake - 0500, sometimes oatmeal B - - 4 coffees with a lot of flavored sweetened creamer. Sometimes eats Eggs or smoothie scoop protein, 1% LF milk, strawberries, blueberries, macha, spinach, sometimes banana S - sometimes salad with Sweet onion dressing or balsamic dressing or chicken nuggets or leftover rice or taco wrap L - 1-2 pm Paul beef hosea has baked crust and sweets or quiche with daugherty on WE S - sometimes watermelon D - 6-8 pm protein, salad, rice or pizza, or Mongolian Gen Kash's with FR S - sometimes cookies and milk or ice cream Fluids - coffee with creamer, water, occasionally regular Sprite Bedtime - 2130-midnight Quality of diet: 24hr recall suggests unhealthy diet. Characterization of diet:Structured, unhealthy snacking, excessive cravings, evening snacking, and increased consumption of sugar sweetened beverages. Applied Technologist of impaired eating habits:lack of satiety and boredom Eating Disorder no Cravings: cookies and milk, ice cream Sleep: Duration: 5-7 hours of interrupted sleep due to baby. ALEX not diagnosed ; CPAP NO + loud snoring, sometimes awakens with headache STOP BANG Questionnaire 1. Snoring Do you snore loudly (louder than talking or loud enough to be heard through closed doors)? YES 2. Tired Do you often feel tired, fatigued, or sleepy during daytime? YES 3. Observed Has anyone observed you stop breathing during your sleep? NO 4. Blood Pressure Do you have or are you being treated for high blood pressure? NO 5. BMI BMI more than 35 kg/m2? YES 6. Age Age over 50 yr old? NO 7. Neck circumference Neck circumference greater than 40 cm? YES 8. Gender Gender male? NO * Neck circumference is measured by staff High risk of ALEX: answering yes to three or more items Low risk of ALEX: answering yes to less than three items Stress: Stress:no Obesity Related Comorbidities: Prior Weight Loss Surgery:No PAST MEDICAL HISTORY Diagnosis Date Blood loss anemia transfusion x 2 PCOS (polycystic ovarian syndrome) (spontaneous vaginal delivery) PAST SURGICAL HISTORY Procedure Laterality Date NONE FAMILY HISTORY Problem Relation Age of Onset Diabetes Mother No Known Problems Father No Known Problems Sister No Known Problems Sister No Known Problems Brother No Known Problems Brother Diabetes Maternal Grandmother No Known Problems Maternal Grandfather Diabetes Paternal Grandmother No Known Problems Paternal Grandfather Social History Tobacco Use Smoking status: Former Types: Cigarettes Smokeless tobacco: Never Vaping Use Vaping Use: Never used Substance Use Topics Alcohol use: Yes Comment: occasional Drug use: Never Medications: Metformin Weight Promoting Medications: SSRI sertraline Diet/weight loss History: Past weight loss attempts? self-directed, exercise program, and anti-obesity medications Metformin. Caloric restriction, Diet pills, Exercise/increased activity, Keto, Low Carbohydrate diet, MyFitnessPal, Self-directed diets such as high protein low carb, and Slimfast Exercise: Regular exercise: no Strength/resistance exercise:no Barriers to regular exercise? 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 Current Contraception: combined hormonal contraceptives Obesity ROS/ FHx GEN: Fatigue:yes CV: h/o palpitations/cardiac arrhythmia, Chest pain: no HTN: yes gestational hypertension PULM: Asthma:no GI: GERD:no ; Gallstones:no ; Fatty liver disease:no Pancreatitis: no MSK: Joint Pain:yes : Nephrolithiasis: no Symptoms of PCOS: yes NEURO: Migraines/SCOTT: yes, SCOTT intermittently for months, sometimes in the morning ; H/o seizures: no Glaucoma:no; Cataracts no Symptoms of or History of pseudotumor cerebri:no Family or personal History of MEN2 or Medullary thyroid cancer: no PE BP 127/84 Pulse 85 Resp 16 Ht 5' 5 (1.651 m) Wt 212 lb (96.2 kg) LMP 11/16/2022 (Exact Date) SpO2 98% Yes BMI 35.28 kg/m Weight Circumference: 49 in Neck Circumference: 16.75 in GENERAL: Female in NAD. Central adiposity. SKIN: acanthosis nigricans yes , Skin tags: yes Hirsutism: yes HEENT: PERRL, No supraclavicular adiposity. No dorsal adiposity. RESPIRATORY: CBTA CARDIAC: RRR ABDOMEN: Protuberant ; EXTREMITIES: peripheral edema: no Results: reviewed with the patient Hospital Outpatient Visit on 12/20/2022 Component Date Value Ref Range Status Radiology Result 12/20/2022 ACTIONABLE (Actionable) Final Appointment on 12/12/2022 Component Date Value Ref Range Status WBC 12/12/2022 7.59 3.70 - 11.00 k/uL Final RBC 12/12/2022 5.21 (H) 3.90 - 5.20 m/uL Final Hemoglobin 12/12/2022 12.9 11.5 - 15.5 g/dL Final Hematocrit 12/12/2022 39.9 36.0 - 46.0 % Final MCV 12/12/2022 76.6 (L) 80.0 - 100.0 fL Final MCH 12/12/2022 24.8 (L) 26.0 - 34.0 pg Final MCHC 12/12/2022 32.3 30.5 - 36.0 g/dL Final RDW-CV 12/12/2022 14.9 11.5 - 15.0 % Final Platelet Count 12/12/2022 314 150 - 400 k/uL Final MPV 12/12/2022 9.6 9.0 - 12.7 fL Final Absolute nRBC 12/12/2022 <0.01 <0.01 k/uL Final Results Only on 12/07/2022 Component Date Value Ref Range Status Slitter Creaser Slotter Helper 12/07/2022 In process Value:Provider JOSE your patient KRYS HUANG has been assigned their Doris program. The date to complete this order is 01-06-2023 The Doris program is: [facility] WHAT TO EXPECT AT YOUR APPOINTMENT The patient access code to view the Doris program is: [id number] To view the Doris program go to: [email or web address] Impression: Krys Huang is a 32 year old Female with Class II obesity (Body mass index is 35.28 kg/m .) who has adult onset obesity with several periods of weight loss followed by weight gain . The causes of her obesity are multifactorial, biological, psychological and social and environmental. Specific factors include exposure to weight gain promoting medication(s) , increased consumption of high calorie/process foods, suboptimal physical activity, and post weight retention. She has no significant weight-related medical comorbidities which increase her cardiovascular mortality risk. There are additional metabolic obesity complications including possible obstructive sleep apnea and PCOS. Other medical conditions as above. Regarding her lifestyle, as above, she has several behavioral contributors; her physical activity is non-existent. Overall, it is clear that her quality of life is mildly compromised by her weight. It is likely a combination of weight loss therapies will be needed. She appears motivated today. ASSESSMENT/PLAN: 1. PCOS (polycystic ovarian syndrome) - ICD9: 256.4, ICD10: E28.2 (primary diagnosis)- - increase metformin to 1 gm twice daily with meals - CONSULT TO NUTRITION THERAPY 2. Loud snoring - ICD9: 786.09, ICD10: R06.83 - HOME SLEEP APNEA TEST (HSAT) 3. Daytime sleepiness - ICD9: 780.54, ICD10: R40.0 - HOME SLEEP APNEA TEST (HSAT) 4. DUB (dysfunctional uterine bleeding) - ICD9: 626.8, ICD10: N93.8 - ENDOMETRIAL BIOPSY - PELVIC US WHI 5. Endometrial mass - ICD9: 625.8, ICD10: N94.89 - ENDOMETRIAL BIOPSY - PELVIC US WHI 6. Class 1 obesity with body mass index (BMI) of 34.0 to 34.9 in adult, unspecified obesity type, unspecified whether serious comorbidity present - ICD9: 278.00, V85.34, ICD10: E66.9, Z68.34 - CONSULT TO NUTRITION THERAPY Whole food balanced protein low-carb nutrition -- Based on the severity and resistance of the obesity/overweight with co-morbidities, I believe a combination of behavioral and pharmacological intervention is the best and most appropriate manager long term care therapeutic option. Metformin - increase to 1 gm twice a day - We discussed medications options for when she is done . Given written information on medications. -- We discussed several strategies to track food intake and increase mindfulness around eating while will decrease calorie intake. She was counseled on the following: Eating primarily whole foods. Limit carbs, especially processed carbs. Do not drink your calories 30 grams of protein for breakfast decreases your hunger during the day by up to 40 % Premier Protein or generic 30 gm protein 1 gm sugar Walk for 15 minutes immediately a meal. -- Encouraged the patient to improve her physical activity. Although cardiovascular exercise is most beneficial for weight loss initially, we discussed healthy muscle from a combination of resistance training and cardiovascular exercise is the best manager long term care plan. An overall goal of 150-200 minutes per week of exercise has been effective in weight loss and maintenance. -- Reviewed that monitoring weight daily and food intake can have a positive impact on overall weight loss and maintenance of weight loss. Activity tracking can be used to stay on target for exercise however should not be used to reward oneself She understands that there can be limitations of pharmacotherapy due to contraindications, side effects and cost. Patient was told to contact her insurance company to see what AOMs and supervised behavioral medical appointments are currently covered. Patient understands she will have more success when following a healthy lifestyle. We reviewed continued use of online tracking of daily weights, food journal and if desired physical activity. We reviewed that during management she is to report any concerning side effects of any pharmacotherapy she is placed on. She understands that she will need routine follow up in the office. Prior to any virtual visits in the future she will need to check her Blood pressure, weight, and pulse. -- follow-up visit in 4 weeks for management of above interventions Paola Reid APRN.YING I spent a total of 75 minutes on the date of the service which included preparing to see the patient, [id number] patient care, completing clinical documentation, obtaining and/or reviewing separately obtained history, performing a medically appropriate examination, counseling and educating the patient/family/caregiver, and ordering medications, tests, or procedures. documented in this encounter [facility] 12-12-2022 Note HNO ID: [id number] Author: Paola Reid APRN.CNP Service: ? Author Type: Nurse Practitioner Type: Progress Notes Filed: 12/26/2022 1:15 PM Note Text: Railroad Detective offered: Patient declines. Krys Huang is a 32 year old female who presents for problem visit PCOS with irregular bleeding HPI: PCOS diagnosed in 2014 by follow up manager in [place]. History of irregular menses and prolonged bleeding. Needed blood transfusion x 2. 04/2022. Menses resumed 2 months after deliver until last menses. LMP 11/16/2022 - 4-5 days of usual flow followed by spotting for a couple of days and bleeding is now variable between spotting and heavy with clots size of quarter size long stringy clots. No cramping. Has had mid low back pain since epidural but now sciatica nerve is painful on left. Denies chest pain, SOB or feeling lightheaded. Has used OCP in the past but it is only temporarily effective. Past metformin - 500 mg a day did not cause nausea but higher doses did. Lost weight. Menses more regular with improvement in prolonged bleeding. Did not continue metformin after delivery. Is 3-4 times a day. Weight 170 lb prior to . No GDM or pre-eclampsia. OB History No obstetric history on file. 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 LMP: 11/16/2022, Having periods Age at Menarche: Age at First : Age at Menopause: 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 Comments: Sexual Activity: Yes; Male Contraception: Condom PAST MEDICAL HISTORY Diagnosis Date PCOS (polycystic ovarian syndrome) (spontaneous vaginal delivery) PAST SURGICAL HISTORY Procedure Laterality Date NONE FAMILY HISTORY Problem Relation Age of Onset Diabetes Mother No Known Problems Father No Known Problems Sister No Known Problems Sister No Known Problems Brother No Known Problems Brother Diabetes Maternal Grandmother No Known Problems Maternal Grandfather Diabetes Paternal Grandmother No Known Problems Paternal Grandfather Social History Tobacco Use Smoking status: Former Types: Cigarettes Smokeless tobacco: Never Vaping Use Vaping Use: Never used Substance Use Topics Alcohol use: Yes Comment: occasional Drug use: Never Current Outpatient Medications Medication Sig sertraline (ZOLOFT) 50 mg tablet Take 50 mg by mouth once daily. 1.5 daily No current facility-administered medications for this visit. Allergies As of Date: 12/12/2022 Allergen Noted Reaction IODINATED CONTRAST MEDIA 12/12/2022 Hives and Itching Fully Assessed 12/12/2022 REVIEW OF SYSTEMS Abdomen: No bloating, early satiety, indigestion, or increased flatulence. No abdominal pain, nausea, vomiting, diarrhea, or constipation. Bladder: No dysuria, gross hematuria, urinary frequency, urinary urgency, or incontinence. Denies family history of clotting disorders. Denies personal history of DVT, CVD, hypertension or migraine with aura. Non smoker. Allergies and current medication updated:Yes EXAM: BP 118/80 Ht 5' 5 (1.65m) Wt 210 lb 3.2 oz (95.3kg) LMP 11/16/2022 BMI 34.98 kg/(m2). GENERAL: pleasant, female in no apparent distress Derm: mucous membranes pink CHEST: Normal inspiratory effort ABDOMEN: soft, non-tender, and no masses PELVIC: external genitalia normal, normal Bartholin's glands, urethra, [place]'s glands, no vulvar lesions, no cervical lesions, good vaginal support, physiologic discharge present, normal appearing perineal body and perianal region BIMANUAL: uterus normal size, shape and consistency, no adnexal masses, and non-tender NEURO: alert and oriented x3,exam grossly non-focal ASSESSMENT/PLAN: 1. DUB (dysfunctional uterine bleeding) - ICD9: 626.8, ICD10: N93.8 (primary diagnosis) - long- term for many years and now resuming since of baby - CBC - US FEMALE PELVIS TRANSVAG - DROSPIRENONE 3 MG-ETHINYL ESTRADIOL 0.02 MG TABLET 2. PCOS (polycystic ovarian syndrome) - ICD9: 256.4, ICD10: E28.2 - CBC - US FEMALE PELVIS TRANSVAG - METFORMIN 500 MG TABLET - DROSPIRENONE 3 MG-ETHINYL ESTRADIOL 0.02 MG TABLET 3. Blood loss anemia - ICD9: 280.0, ICD10: D50.0 - CBC 4. Encounter for BCP ( control pills) initial prescription - ICD9: V25.01, ICD10: Z30.011 - RX for Lou given today. - discussed with patient on how to take OCP's. Given written information - counseled on benefits, risks and possible severe side effects of OCP's. - discussed need to use Condoms to help to prevent STD's including HIV etc. - DROSPIRENONE 3 MG-ETHINYL ESTRADIOL 0.02 MG TABLET 5. Class 1 obesity with body mass index (BMI) of 34.0 to 34.9 in adult, unspecified obesity type, unspecified whether serious comorbidity present - ICD9: 278.00, V85.34, ICD10: E66.9, Z68.34 She is frustrated with weight and knows that she needs to lose weight and become more healthy before having another baby. Discussed weight management in addition to management of PCOS and she plans to make an appoin (more content not included)... [facility] 12-12-2022 Instructions Paola Reid APRN.[facility] - 12/12/2022 10:07 AM EDT Oral Contraceptives: The Pill Beginning the Pill Pills come in either a 21 day pack or a 28 day pack. With the 21 day pack you will take one pill for 21 days then no pill for 7 days, during which time you will have what is known as withdrawal bleeding. The 28 day pack allows you to take a pill every day of the cycle with no interruptions. The first 21 pills are the pills with the active ingredients and the last 7 are the nonmedical pills (placebo) or they may contain iron. There will be bleeding during the week you are taking the nonmedical pills. The advantage to the 28 day pack is that you don t have to keep track of when you stopped the pill. There are a group of 28 day pills that contain 24 active pills and only 4 placebo pills. These are formulated to give you a wood cabinetmaker period. Unless otherwise instructed, you should start your pills the Friday following your first day of bleeding with your next period (if your period starts on a Friday, you should start pills the same day) Read your information packet that comes with the pills. Pill Benefits The pill is the most popular method of reversible control being used today. Millions of women rely on oral contraceptives as their control method. It is important to have an examination by your physician to determine if the pill is safe for you. There are several advantages associated with the pill: it is 97-98% effective when used correctly; may improve acne; periods are more regular and less painful; there is less iron deficiency anemia in pill users. MCC use is associated with a decreased incidence of ovarian and uterine cancer. There is also no evidence that the pill increases the incidence of any cancer. How Oral Contraceptives Work Oral contraceptives come in two varieties. One is the combination pill which contains both estrogen and progesterone. Combination pills are considered 98-99% effective in preventing . This pill comes in either monophasic, which delivers the same amount of estrogen and progesterone throughout the cycle; and triphasic, which try tries to mimic the normal hormone cycle by changing the levels of the hormones in the pills during the month. There is no real advantage to taking the one over the other. The other type of pill only contains progesterone. It is best used for women who can t take estrogen. This type of pill is slightly less effective than the combination pill in preventing . It is VERY important to take the progesterone only pill at the same time every day. Oral contraceptives prevent ovulation (release of an egg from the ovary) by suppressing the pituitary gland s action. The pill does NOT prevent sexually transmitted disease. Obtaining a Prescription It is important to see your doctor before starting oral contraceptives so that you can have a full medical history taken and a physical examination given. Certain medical conditions may make the pill inappropriate for you, therefore it is very important to be honest and as complete as possible with the information you share with your doctor. The types of predisposing factors which would make the pill a poor choice of control would include: History of blood clots Stroke Serious liver disease or impaired liver function Unexplained vaginal bleeding or Cancer of the reproductive system Active gall bladder disease Hypertension Possible Side Effects It can take up to three months for your body to become adjusted to the pill. The more common side effects experienced at this time are: breakthrough spotting or bleeding, which is bleeding at any other time other than when you should be having a period; nausea or vomiting; breast tenderness; and mild fluid retention. There is no long-term weight gain with the use of the pill. Breakthrough bleeding is the most common complaint of new pill users. There is no way to predict who will have it and there is no way of preventing it. Breakthrough bleeding usually subsides on its own with no further treatment after the first three months of taking the pill. If these symptoms continue to occur after the first three months you should check with your physician to see if there is any physical cause and possibly change to another control pill. Problems: Missed 1 pill: Take 2 pills the next day. Missed 2 pills: Take 2 pills the next day and 2 pills the following day. Also use another form of control (condoms) along with the pill for the rest of the month. Missed 3 or more pills: You have two choices. You can take two pills each day until you are on schedule, plus use an additional form of control along with the pill for the rest of the month. Or you can stop the pill and start a completely new pack of pills the next Friday. You must use another form of control with the pill for at least the first two weeks of the new pack. You re ill and you have been vomiting or have diarrhea: You must use another form of control with the pill since the pill may not be fully absorbed during your illness. Continue to use the added control until the end of the cycle. Desire to become : Stop using the pill for one month before trying to become . Taking other medications: The control pill is less effective when you take the antibiotic Rifampin, epilepsy (seizure) drugs such as phenytoin, carbamazepine, phenobarbital, topiramate and some medications for HIV. Let your doctor know if you start taking any of these medications while on the pill. Symptoms to Notify Your Doctor with Immediately: Pain in your chest or legs Continuous blurred vision Severe headaches Slurred speech Tingling or weakness on one side of your body Shortness of breath Swelling of one leg Refills of Control Pills You need to see a doctor every year for a refill of your prescription. This is necessary in order that your health can be monitored closely while you are taking control pills. If your prescription should before your next scheduled appointment you can usually get a one month extension from your doctors office if you call during regular business hours about one week before you need to start the new package of pills. This allows the physician to refer to your chart for necessary health information. METFORMIN Dosing -- Begin Metformin 500 mg with dinner daily x 1 week. If you are experiencing any GI side effects, do not increase dose for 1-4 weeks. If tolerating, you can increase to 2 tablets with dinner daily. Taking the medication with food will help. -- if you experience any GI upset (Nausea, diarrhea, bloating, gas) you can go back to 1 tablet or hold the medication until it resolves. Once you are tolerating the medication you can try increasing it again. -- we can discuss increasing the dose further at your follow up visit. -- Metformin can interfere with the absorption of B12 in your food, please add a B12 1,000-2,400 mcg supplement and I suggest having it checked every 1-2 years Using Metformin for weight loss: Metformin helps to lower blood glucose levels by reducing the amount of glucose produced and released by the liver, and by increasing insulin sensitivity. It has now been proven to prevent or delay diabetes. Metformin and Type 2 Diabetes Prevention Diabetes Spectrum (diabetesjournals.org) Large cohort studies have shown weight loss benefits associated with metformin therapy. Emerging evidence suggests that metformin-associated weight loss is due to modulation of hypothalamic appetite-regulatory centers, alteration in the gut microbiome, and reversal of consequences of aging. Metformin is also being explored in the management of obesity s sequelae such as hepatic steatosis, obstructive sleep apnea and osteoarthritis. Effectiveness of metformin on weight loss in non-diabetic individuals with obesity - PubMed (nih.gov) Is metformin a wonder drug? - [facility] Common side effects of this medication include nausea, changes in bowel habits, abdominal discomfort, and flatulence. Taking the medication with food will help. Side effects also typically get better with time. Rarely, a severe side effect called lactic acidosis can occur. If you experience malaise, muscle aches, difficulty breathing, or severe abdominal pain, please seek immediate medical attention. Metformin: Patient drug information Warning Rarely, metformin may cause too much lactic acid in the blood (lactic acidosis). The risk is higher in people who have kidney problems, liver problems, heart failure, use alcohol, or take other drugs like topiramate. The risk is also higher in people who are 65 or older and in people who are having surgery, an exam or test with contrast, or other procedures. If lactic acidosis happens, it can lead to other health problems and can be deadly. Kidney tests may be done while taking this drug. Do not take this drug if you have a very bad infection, low oxygen, or a lot of fluid loss (dehydration). Call your doctor right away if you have signs of too much lactic acid in the blood (lactic acidosis) like fast breathing, fast or slow heartbeat, a heartbeat that does not feel normal, very bad upset stomach or throwing up, feeling very sleepy, shortness of breath, feeling very tired or weak, very bad dizziness, feeling cold, or muscle pain or cramps. What is this drug used for? It is used to lower blood sugar in patients with high blood sugar (diabetes), treatment for PCOS, What do I need to tell my doctor BEFORE I take this drug? If you are allergic to this drug; any part of this drug; or any other drugs, foods, or substances. Tell your doctor about the allergy and what signs you had. If you have any of these health problems: Acidic blood problem, kidney disease, or liver disease. If you have had a recent heart attack or stroke. If you are not able to eat or drink like normal, including before certain procedures or surgery. If you are having an exam or test with contrast or have had one within the past 48 hours, talk with your doctor. This is not a list of all drugs or health problems that interact with this drug. Tell your doctor and pharmacist about all of your drugs (prescription or OTC, natural products, vitamins) and health problems. You must check to make sure that it is safe for you to take this drug with all of your drugs and health problems. Do not start, stop, or change the dose of any drug without checking with your doctor. What are some things I need to know or do while I take this drug? All products: Tell all of your health care providers that you take this drug. This includes your doctors, nurses, pharmacists, and dentists. Talk with your doctor before you drink alcohol. Do not drive if your blood sugar has been low. There is a greater chance of you having a crash. Check your blood sugar as you have been told by your doctor. Have blood work checked as you have been told by the doctor. Talk with the doctor. It may be harder to control blood sugar during times of stress such as fever, infection, injury, or surgery. A change in physical activity, exercise, or diet may also affect blood sugar. Follow the diet and workout plan that your doctor told you about. If diarrhea happens or you are throwing up, call your doctor. You will need to drink more fluids to keep from losing too much fluid. Be careful in hot weather or while being active. Drink lots of fluids to stop fluid loss. Long-term treatment with metformin may lead to low vitamin B-12 levels. If you have ever had low vitamin B-12 levels, talk with your doctor. If you are 65 or older, use this drug with care. You could have more side effects. There is a chance of in people of childbearing age who have not been ovulating. If you want to avoid , use control while taking this drug. Tell your doctor if you are , plan on getting , or are breast-feeding. You will need to talk about the benefits and risks to you and the baby. What are some side effects that I need to call my doctor about right away? WARNING/CAUTION: Even though it may be rare, some people may have very bad and sometimes deadly side effects when taking a drug. Tell your doctor or get medical help right away if you have any of the following signs or symptoms that may be related to a very bad side effect: Signs of an allergic reaction, like rash; hives; itching; red, swollen, blistered, or peeling skin with or without fever; wheezing; tightness in the chest or throat; trouble breathing, swallowing, or talking; unusual hoarseness; or swelling of the mouth, face, lips, tongue, or throat. It is common to have stomach problems like upset stomach, throwing up, or diarrhea when you start taking this drug. If you have stomach problems later during treatment, call your doctor right away. This may be a sign of an acid health problem in the blood (lactic acidosis). Low blood sugar can happen. The chance may be raised when this drug is used with other drugs for diabetes. Signs may be dizziness, headache, feeling sleepy or weak, shaking, fast heartbeat, confusion, hunger, or sweating. Call your doctor right away if you have any of these signs. Follow what you have been told to do for low blood sugar. This may include taking glucose tablets, liquid glucose, or some fruit juices. What are some other side effects of this drug? All drugs may cause side effects. However, many people have no side effects or only have minor side effects. Call your doctor or get medical help if any of these side effects or any other side effects bother you or do not go away: Stomach pain or heartburn. Gas. Diarrhea, upset stomach, or throwing up. Feeling tired or weak. Headache. These are not all of the side effects that may occur. If you have questions about side effects, call your doctor. Call your doctor for medical advice about side effects. You may report side effects to your national health agency. How is this drug best taken? Use this drug as ordered by your doctor. Read all information given to you. Follow all instructions closely. All products: Take with meals. Keep taking this drug as you have been told by your doctor or other health care provider, even if you feel well. 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 Krys Huang is a 32 year old female who presents for problem visit PCOS with irregular bleeding HPI: PCOS diagnosed in 2014 by follow up manager in [place]. History of irregular menses and prolonged bleeding. Needed blood transfusion x 2. 04/2022. Menses resumed 2 months after deliver until last menses. LMP 11/16/2022 - 4-5 days of usual flow followed by spotting for a couple of days and bleeding is now variable between spotting and heavy with clots size of quarter size long stringy clots. No cramping. Has had mid low back pain since epidural but now sciatica nerve is painful on left. Denies chest pain, SOB or feeling lightheaded. Has used OCP in the past but it is only temporarily effective. Past metformin - 500 mg a day did not cause nausea but higher doses did. Lost weight. Menses more regular with improvement in prolonged bleeding. Did not continue metformin after delivery. Is 3-4 times a day. Weight 170 lb prior to . No GDM or pre-eclampsia. OB History No obstetric history on file. 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 LMP: 11/16/2022, Having periods Age at Menarche: Age at First : Age at Menopause: 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 Comments: Sexual Activity: Yes; Male Contraception: Condom PAST MEDICAL HISTORY Diagnosis Date PCOS (polycystic ovarian syndrome) (spontaneous vaginal delivery) PAST SURGICAL HISTORY Procedure Laterality Date NONE FAMILY HISTORY Problem Relation Age of Onset Diabetes Mother No Known Problems Father No Known Problems Sister No Known Problems Sister No Known Problems Brother No Known Problems Brother Diabetes Maternal Grandmother No Known Problems Maternal Grandfather Diabetes Paternal Grandmother No Known Problems Paternal Grandfather Social History Tobacco Use Smoking status: Former Types: Cigarettes Smokeless tobacco: Never Vaping Use Vaping Use: Never used Substance Use Topics Alcohol use: Yes Comment: occasional Drug use: Never Current Outpatient Medications Medication Sig sertraline (ZOLOFT) 50 mg tablet Take 50 mg by mouth once daily. 1.5 daily No current facility-administered medications for this visit. Allergies As of Date: 12/12/2022 Allergen Noted Reaction IODINATED CONTRAST MEDIA 12/12/2022 Hives and Itching Fully Assessed 12/12/2022 REVIEW OF SYSTEMS Abdomen: No bloating, early satiety, indigestion, or increased flatulence. No abdominal pain, nausea, vomiting, diarrhea, or constipation. Bladder: No dysuria, gross hematuria, urinary frequency, urinary urgency, or incontinence. Denies family history of clotting disorders. Denies personal history of DVT, CVD, hypertension or migraine with aura. Non smoker. Allergies and current medication updated:Yes EXAM: BP 118/80 Ht 5' 5 (1.65m) Wt 210 lb 3.2 oz (95.3kg) LMP 11/16/2022 BMI 34.98 kg/(m^2). GENERAL: pleasant, female in no apparent distress Derm: mucous membranes pink CHEST: Normal inspiratory effort ABDOMEN: soft, non-tender, and no masses PELVIC: external genitalia normal, normal Bartholin's glands, urethra, [place]'s glands, no vulvar lesions, no cervical lesions, good vaginal support, physiologic discharge present, normal appearing perineal body and perianal region BIMANUAL: uterus normal size, shape and consistency, no adnexal masses, and non-tender NEURO: alert and oriented x3,exam grossly non-focal ASSESSMENT/PLAN: 1. DUB (dysfunctional uterine bleeding) - ICD9: 626.8, ICD10: N93.8 (primary diagnosis) - long- term for many years and now resuming since of baby - PSYCHIATRIC - US FEMALE PELVIS TRANSVAG - DROSPIRENONE 3 MG-ETHINYL ESTRADIOL 0.02 MG TABLET 2. PCOS (polycystic ovarian syndrome) - ICD9: 256.4, ICD10: E28.2 - PSYCHIATRIC - US FEMALE PELVIS TRANSVAG - METFORMIN 500 MG TABLET - DROSPIRENONE 3 MG-ETHINYL ESTRADIOL 0.02 MG TABLET 3. Blood loss anemia - ICD9: 280.0, ICD10: D50.0 - PSYCHIATRIC 4. Encounter for BCP ( control pills) initial prescription - ICD9: V25.01, ICD10: Z30.011 - RX for Lou given today. - discussed with patient on how to take OCP's. Given written information - counseled on benefits, risks and possible severe side effects of OCP's. - discussed need to use Condoms to help to prevent STD's including HIV etc. - DROSPIRENONE 3 MG-ETHINYL ESTRADIOL 0.02 MG TABLET 5. Class 1 obesity with body mass index (BMI) of 34.0 to 34.9 in adult, unspecified obesity type, unspecified whether serious comorbidity present - ICD9: 278.00, V85.34, ICD10: E66.9, Z68.34 She is frustrated with weight and knows that she needs to lose weight and become more healthy before having another baby. Discussed weight management in addition to management of PCOS and she plans to make an appointment. - METFORMIN 500 MG TABLET 6. Encounter for vitamin deficiency screening - ICD9: V77.99, ICD10: Z13.21 - VITAMIN D 25 HYDROXY 7. Screening for diabetes mellitus - ICD9: V77.1, ICD10: Z13.1 - INSULIN ASSAY BLOOD - HGB A1C 8. Screening for deficiency anemia - ICD9: V78.1, ICD10: Z13.0 - COMP METABOLIC PANEL - IRON + TIBC - FERRITIN BLD 9. Screening cholesterol level - ICD9: V77.91, ICD10: Z13.220 - LIPID PANEL BASIC 10. Screening for thyroid disorder - ICD9: V77.0, ICD10: Z13.29 - TSH BLD 11. Malaise and fatigue - ICD9: 780.79, ICD10: R53.81, R53.83 - TSH BLD Will notify of results. Follow- up as needed. Paola Reid APRN.CNP Medical Decision Making: Problems: Moderate: 1+ chronic illnesses with change Data: Unique test(s) ordered: 3+ Risk: Moderate: Drug management and Moderate risk from testing/treatment Medical Decision Making Level: 4 - Moderate documented in this encounter [facility] 05-17-2022 Note Pt watched discharge teaching video. Reviewed Guide to Caring for Yourself, discharge instructions and home medication list. Encouraged 1) use of the post- warning signs magnet 2) use of the green armband if pre-e hx, and 3) and after discharge to watch for these signs and symptoms: Fever - Oral temperature greater than 100.4 degrees Fahrenheit Foul-smelling vaginal discharge Headache unrelieved by pain medication Difficulty urinating Breasts reddened, hard, hot to the touch Nipple discharge which is foul-smelling or contains pus Increased pain at the site of the laceration Sudden increased vaginal bleeding, soaking a large pad front to back in 1 hour Passing any blood clots bigger than a large egg Difficulty breathing with or without chest pain New calf pain especially if only on one side Unrelieved feelings of inability to cope Patient states understanding and denies questions. [facility] 2022 Note Department of Obstet rics and Gynecology Delivery Discharge Summary Admission on 05/15/2022 11:05 AM Hospital course: Krys Chase at 38w5d admitted as a transfer from [facility] for PreEwSF with PROM. She was given magnesium for seizure prophylaxis. Started pitocin on arrival due to prolonged ROM. IUPC was placed. Patient became complete and pushed for 3 contractions. course & complications: - Uncomplicated Surgical Operations & Procedures: Date of delivery: 05/15/22 Procedure: Vaginal: Spontaneous Anesthesia: Epidural anesthesia Laceration(s): 2nd degree and Periurethral mildline Delivery Complications: none EBL: 500 mL Pertinent Findings & Procedures: Information for the patient's : Patrick Chase [[id number]] male 5 lb 11.5 oz (2.595 kg) Apgars: Information for the patient's : Patrick Chase [[id number]] : : Boy; circumcision done Blood Type/Rh: O Antibody Screen: No results found for: LABANTI Rubella: No results found for: RUBELLAIGG Contraception: Will discuss with patient at the 6-week visit. : VTE Prophylaxis: Not Indicated Meds at Discharge: Medication List START taking these medications DSS 100 MG capsule Take 1 capsule (100 mg) by mouth 2 times daily as needed for constipation (Vaginal Delivery) for up to 10 days. ibuprofen 600 MG tablet Take 1 tablet (600 mg) by mouth every 6 hours as needed for mild pain (1-3) for up to 10 days. NIFEdipine XL 30 MG 24 hr tablet Commonly known as: Procardia XL Take 1 tablet (30 mg) by mouth daily. Do not crush, chew, or split. Do not start before May 18, 2022. Start taking on: May 18, 2022 CONTINUE taking these medications 1+1 PO Where to Get Your Medications These medications were sent to [facility] [address] [place] [address] Hours: Friday to Friday 10 am to 6 pm DSS 100 MG capsule ibuprofen 600 MG tablet NIFEdipine XL 30 MG 24 hr tablet Activity: Activity as tolerated Diet: Regular diet Follow-up Appointments: - visit - Blood pressure check If a patient meets criteria for hypertension, make sure the following are done prior to discharge: [] Order a blood pressure kit through [facility] (or the patient's own pharmacy on the weekend) [] Order the blood pressure log through [employer] [x] Place an office visit or telephone encounter for a 3-to-5-day blood pressure check. [] Include blood pressure dot phrase (.sumobhypertension) in discharge instructions [] Check here if the patient does NOT meet criteria for hypertension Condition on discharge: Stable Discharge to: Home Discharge date: 05/17/22 Discharge Dx: s/p 2. preEwSF 3. Obesity Severe preeclampsia [O14.10] Patient Active Problem List Diagnosis JANICE (generalized anxiety disorder) Mild depression Polycystic ovaries Menorrhagia Anemia Severe preeclampsia Comments: Home care, Follow-up care and control were reviewed. Signs and symptoms of mastitis and Depression were reviewed. The patient is to notify her physician if any of these occur. [facility] 2022 Note Patient: Krys lundberg Procedure Summary Date: 05/15/22 Room / Location: Anesthesia Start: 1249 Anesthesia Stop: 2231 Procedure: Labor Analgesia Diagnosis: Scheduled Providers: Responsible Provider: Rojelio Ty MD Anesthesia Type: epidural ASA Status: 3 Anesthesia Type: epidural Vitals Value Taken Time BP 131/90 05/15/22 2238 Temp 98.3 05/15/22 2243 Pulse 110 05/15/228 Resp 16 05/15/22 2243 SpO2 100 % 05/15/222229 Vitals shown include unvalidated device data. Anesthesia Post Evaluation Patient location during evaluation: PACU Patient participation: complete - patient participated Level of consciousness: awake and alert Pain management: satisfactory to patient Airway patency: patent Dental Injury: no Cardiovascular status: acceptable, blood pressure returned to baseline and hemodynamically stable Respiratory status: acceptable and spontaneous ventilation Hydration status: euvolemic Nausea/Vomiting: controlled No notable events documented. Patient can be discharged once all PACU criteria has been met. [facility] 2022 Note Patient: Krys lundberg Procedure Summary Date: 05/15/22 Room / Location: Anesthesia Start: 1249 Anesthesia Stop: 2231 Procedure: Labor Analgesia Diagnosis: Scheduled Providers: Responsible Provider: Rojelio Ty MD Anesthesia Type: epidural ASA Status: 3 Anesthesia Type: epidural Vitals Value Taken Time BP 131/90 05/15/22 2238 Temp 98.3 05/15/22 2242 Pulse 110 05/15/22 2238 Resp 16 05/15/22 2242 SpO2 100 % 05/15/220 Vitals shown include unvalidated device data. Anesthesia Post Evaluation Patient location during evaluation: PACU Patient participation: complete - patient participated Level of consciousness: awake and alert Pain management: satisfactory to patient Multimodal analgesia pain management approach Airway patency: patent Two or more strategies used to mitigate risk of obstructive sleep apnea Cardiovascular status: acceptable and hemodynamically stable Respiratory status: acceptable Hydration status: acceptable No notable events documented. Anesthesia Post Evaluation I completed my handoff to the receiving clinician during which we: 1. Identified the patient 2. Identified the responsible provider 3. Reviewed the pertinent medical history 4. Discussed the surgical course 5. Reviewed intra-op anesthesia management and issues during anesthesia 6. Set expectations for post-procedure period 7. Allowed opportunity for questions and acknowledgement of understanding. [facility] 05-15-2022 Note Labor Progress Note Date: 05/15/2022 Time: 2:21 PM Subjective: Krys Chase is a 31 y.o. female at 38w5d admitted for IOL-PreEwSF Complications: PreEwSF - transferred from OSH for severe range BP's SVE on admission: /-1 GBS: [x]Pos []Neg []Unknown --> PCN Cx: Unchanged per Dr. Molina FHP: defer FHT: cat II [place]: irregular A/P: 1. IOL-PreEwSF. Will start pitocin as patient has been broken since 1900 last night. FHT cat II for intermittent late decels and periods of minimal variability. Overall reassuring with periods of moderate variability. BP's normotensive to mild range but normal since epidural placement. CCM. Jillina Jewell MD 05/15/2022 2:25 PM Cx:defer FHP:defer FHT: Cat II [place]: q6min A/P: 1. IOL-PreEwSF: Cat II for int late decels, overall reassuring with moderate variability and spon accels. Pit @4cc/hr, continue to titrate per protocol. BP normotensive. CCM. unchanged /-1. IUPC placed at this time. Pitocin at 4 ml/hr, continue to titrate per protocol. Patient repositioned to left side with peanut ball. CCM. Daphnie Garvin DO 05/15/2022 4:37 PM Cx: defer FHP: defer FHT: Cat II [place]: q2-6minutes with coupling A/P: 1. IOL-PreEwSF: FHT Category II for intermittent late decelerations overall reassuring with moderatd variability, accelerations present, and decelerations present. Blood pressure NT. Pit @ 10 ml/hr. IUPC in place MCU 153. 800 out today documented in epic. Will plan to assess UOP with nurse soon. LALITO ALMODOVAR, DO 05/15/2022 7:17 PM Mag level 6.5. Therapeutic. Continue infusing at current rate. Cat II for intermittent late decelerations with periods of minimal variability. Pit @ 10cc. Frequent positions are being preformed. Coupling still present.LALITO ALMODOVAR DO 05/15/2022 9:00 PM Complete +1. Pushed well with just bare down. Dr Amos En route. Moderate variability after SVE. LALITO ALMODOVAR DO 05/15/2022 9:55 PM [facility] 05-15-2022 Note Epidural Block Time Out: 05/15/2022 12:54 PM Patient location during procedure: OB Start time: 05/15/2022 12:55 PM End time: 05/15/2022 1:04 PM Reason for block: labor analgesia Staffing Performed: BUDGET COORDINATOR and SRNA Resident/BUDGET COORDINATOR: SHASTA Ash CRNA Preanesthetic Checklist Completed: patient identified, IV checked, site marked, risks and benefits discussed, surgical consent, monitors and equipment checked, pre-op evaluation, timeout performed, IV bolus and anesthesia consent given Block Placement Patient position: sitting Prep: ChloraPrep Sterility prep: drape, gloves, cap, hand and mask Sedation level: no sedation Patient monitoring: heart rate Approach: midline Location: lumbar Lumbar location: L3-L4 Epidural Loss of resistance technique: saline Guidance: landmark technique Needle Needle type: Lee Needle gauge: 17 G Needle length: 9 cm Needle insertion depth: 7.5 cm Catheter type: multi-orifice Catheter size: 19 G Catheter at skin depth: 14 cm Catheter securement method: surgical tape, liquid medical adhesive and clear occlusive dressing Test dose: negative Assessment Block outcome: pain improved Number of attempts: 1 Procedure assessment: patient tolerated procedure well with no immediate complications [facility] 05-15-2022 Note Patient: Sandnicka D toño Procedure Information Date: 05/15/22 Procedure: Labor Analgesia Relevant Problems Cardio (+) Severe preeclampsia Neuro/Psych (+) JANICE (generalized anxiety disorder) (+) Mild depression Clinical information reviewed: Allergies Meds Surg Hx Physical Exam Airway Mallampati: III TM distance: >3 FB Neck ROM: full Mouth Open: normal Cardiovascular Dental Pulmonary Abdominal Anesthesia Plan ASA 3 epidural The patient is not a current smoker. Anesthetic plan and risks discussed with patient. Use of blood products discussed with who consented to blood products. patient is NPO Additional Equipment Requests [facility] 05-15-2022 Note Obstetrical History and Physical CHIEF COMPLAINT: Labor, Elevated BP HISTORY OF PRESENT ILLNESS: The patient is a 31 y.o. female at 38w5d OB History 1 Para Term AB Living 0 SAB IAB Ectopic Multiple Live Births Patient presented to OSH for PROM. She was found to be 3cm dilated and then had persistent severe range BP's requiring acute treatment with . She was started on magnesium sulfate for seizure prophylaxis and transferred here for further management. On arrival, she is uncomfortable with contractions, SROM @ 1900 last night. She has had elevated BP's in the office but was very high this morning. She was originally going to be induced at 37 weeks for gHTN. She was acutely treated with 20/40mg IV labetalol at OSH and started on magnesium sulfate for seizure ppx, 4g bolus and 2g/hr. Denies DFM/VB/LOF/SCOTT/EpigastricPain/Vis ual changes Estimated Due Date: Estimated Date of Delivery: 05/24/22 PC-01 HARDSTOP. Current EGA is 38w5d Is this patient being delivered between [id number] weeks with an acceptable medical indication (obstetric, maternal, and/or )? YES: This patient is between [id number] and DOES have an acceptable indication(s) for delivery: (arlette all that apply) OBSTETRIC INDICATIONS: Pre-eclampsia or Eclampsia severe pre-eclampsia, INDICATIONS: N/A: indications not applicable to this patient. See obstetrical or maternal, N/A: maternal indications not applicable for this patient. See or obstetrical CARE: Complications: See A/P PAST OB HISTORY: OB History Para Term AB Living 1 0 SAB IAB Ectopic Multiple Live Births # Outcome Date GA Lbr Dony/2nd Weight Sex Delivery Anes PTL Lv 1 Current Detailed OB History G1 - Current Past Medical History: Past Medical History: Diagnosis Date PCOS (polycystic ovarian syndrome) Past Surgical History: History reviewed. No pertinent surgical history. Allergies: Not on File Social History: Social History Socioeconomic History Marital status: Spouse name: Not on file Number of children: Not on file Years of education: Not on file Highest education level: Not on file Occupational History Not on file Tobacco Use Smoking status: Never Smokeless tobacco: Never Substance and Sexual Activity Alcohol use: Yes Drug use: Never Sexual activity: Yes Other Topics Concern Not on file Social History Narrative Not on file Social Determinants of Health Financial Resource Strain: Not on file Food Insecurity: Not on file Transportation Needs: Not on file Physical Activity: Not on file Stress: Not on file Social Connections: Not on file Intimate Partner Violence: Not on file Housing Stability: Not on file Family History: Medications Prior to Admission: No medications prior to admission. REVIEW OF SYSTEMS: Const: Negative HEENT: Negative Resp: Negative CVS: Negative GI: Negative : Negative MSK: Negative Breast: Negative Skin: Negative Heme/Lymph:Negative Endo: Negative Neuro: Negative Psych: Negative PHYSICAL EXAM: There were no vitals filed for this visit. General appearance: awake, alert, cooperative, no apparent distress, and appears stated age Neurologic: Awake, alert, oriented to name, place and time. Lungs: No increased work of breathing, good air exchange Abdomen: Soft, non tender, gravid, consistent with her gestational age Sterile Speculum Exam: Membranes: Ruptured clear fluid @ 1900 HSV Lesions: NA Cervix: 5/90/-1 Contraction frequency: q2min Labs: CBC/CMP wnl at OSH Blood Type/Rh: O positive Group B Strep: positive Fetus: EFW: 7lb per palpation Presentation: Vtx by U/S Demarco Score: NA 0 1 2 3 Position Posterior Mid Anterior - Consistency Firm Medium Soft - Effacement 0-30% 40-50% 60-70% 80% or > Dilation 0cm 1-2cm 3-4cm 5cm or > Station -3 -2 -1, 0 +1, +2 LABOR DELIVERY ??? SCD's ONLY (labor through ambulation) SCD's PLUS Prophylactic Anticoagulation until discharge SCD's PLUS Prophylactic Anticoagulation for 6 weeks SCD's PLUS Therapeutic Anticoagulation for 6 weeks Vaginal Delivery [] BMI ? 40 kg/m2 Delivery All patients Vaginal Delivery [] BMI ? 40 kg/m2 AND [] Antepartum hospitalization ? 72 hours within the past month Delivery 1 Major Risk Factor: [] BMI ? 35 kg/m2 [] Low Risk Thrombophilia [] PPH+RBCs, IR, or operation [] Infection+Antibiotics [] Antepartum hospitalization ? 72 hours within the past month [] PMH: Sickle Cell, SLE, Cardiac Dz, Active IBD, Active Cancer, Nephrotic Syndrome OR 2 Minor Risk Factors: [] Multiple gestation [] Age > 40 [] PPH ? 1,000cc [] (+)FMH of VTE [] Smoker [] Preeclampsia [] BMI ? 40 kg/m2 AND [] Low Risk Thrombophilia OR ANY OF THE FOLLOWING: [] High Risk Thrombophilia without prior VTE [] Low Risk Thromboph (more content not included)... [facility] Diagnosis PCOS (polycystic ovarian syndrome)- Primary Polycystic ovaries Loud snoring Daytime sleepiness DUB (dysfunctional uterine bleeding) Other disorder of menstruation and other abnormal bleeding from female genital tract Endometrial mass Other specified symptom associated with female genital organs Class 1 obesity with body mass index (BMI) of 34.0 to 34.9 in adult, unspecified obesity type, unspecified whether serious comorbidity present [facility] Diagnosis DUB (dysfunctional uterine bleeding) Other disorder of menstruation and other abnormal bleeding from female genital tract PCOS (polycystic ovarian syndrome) Polycystic ovaries [facility] Diagnosis Endometrial mass Other specified symptom associated with female genital organs DUB (dysfunctional uterine bleeding) Other disorder of menstruation and other abnormal bleeding from female genital tract [facility] Diagnosis DUB (dysfunctional uterine bleeding)- Primary Other disorder of menstruation and other abnormal bleeding from female genital tract [facility]* Diagnosis PCOS (polycystic ovarian syndrome)- Primary Polycystic ovaries Hyperinsulinemia Other specified hypoglycemia Elevated LDL cholesterol level Pure hypercholesterolemia Depression with anxiety Dysthymic disorder Loud snoring Daytime sleepiness Craving for particular food Class 1 obesity with body mass index (BMI) of 34.0 to 34.9 in adult, unspecified obesity type, unspecified whether serious comorbidity present documented in this encounter [facility] for referral (narrative)* Diagnostic Procedure Only (Routine) - Authorized Specialty Diagnoses / Procedures [facility]erred To Contact US IMAGING Diagnoses DUB (dysfunctional uterine bleeding) PCOS (polycystic ovarian syndrome) Procedures US FEMALE PELVIS TRANSVAG US TRANSVAGINAL Paola Reid APRN.CNP [address] [place] [address] Us Imaging [place] [address] Referral ID Status Reason Start Date Expiration Date Visits Requested Visits Authorized [id number] Authorized Auto-Generat ed Referral 12/12/2022 01/11/2024 1 1 [facility] for referral (narrative)* Diagnostic Procedure Only (Routine) - Authorized Specialty Diagnoses / Procedures Referred By [facility] Referred To Contact [facility] Diagnoses DUB (dysfunctional uterine bleeding) Endometrial mass Procedures PELVIC US WHI US PELVIC NONOBSTETRIC REAL-TIME IMAGE COMPLETE Paola Reid APRN.CNP [address] [place] [address] [place] [address] Referral ID Status Reason Start Date Expiration Date Visits Requested Visits Authorized [id number] Authorized Auto-Generat ed Referral 12/26/2022 12/26/2023 1 1 * Diagnostic Procedure Only (Routine) - Pending Review Specialty Diagnoses / Procedures [facility] Referred To Contact [facility] Diagnoses Loud snoring Daytime sleepiness Procedures HOME SLEEP APNEA TEST (HSAT) SLEEP STD AIRFLOW HRT RATE&O2 SAT EFFORT UNATT Paola Reid APRN.CNP [address] [place] [address] [facility] [address] [id number] Referral ID Status Reason Start Date Expiration Date Visits Requested Visits Authorized [id number] Pending Review Auto-Generat ed Referral 12/26/2022 12/26/2023 1 1 * Consult, Test, Treat (Routine) - Authorized Specialty Diagnoses / Procedures [facility] Referred To Contact Nutrition Diagnoses PCOS (polycystic ovarian syndrome) Class 1 obesity with body mass index (BMI) of 34.0 to 34.9 in adult, unspecified obesity type, unspecified whether serious comorbidity present Procedures CONSULT TO NUTRITION THERAPY MEDICAL NUTRITION ASSMT&IVNTJ INDIV EACH 15 OK MEDICAL NUTRITION ASSMT&IVNTJ INDIV EACH 15 [place] MEDICAL NUTRITION ASSMT&IVNTJ INDIV EACH 15 [place] MEDICAL NUTRITION ASSMT&IVNTJ INDIV EACH 15 OK Paola Reid APRN.CNP [address] [place] [address] Referral ID Status Reason Start Date Expiration Date Visits Requested Visits Authorized [id number] Authorized PCP Requested Referral 12/26/2022 12/26/2023 1 1 * Outpatient Procedure (Routine) - Authorized Specialty Diagnoses / Procedures [facility] Referred To Contact [facility] Diagnoses DUB (dysfunctional uterine bleeding) Procedures ENDOMETRIAL BIOPSY ENDOMETRIAL BX W/WO ENDOCERVIX BX W/O DILAT SPX Paola Reid APRN.HIGHWAY INSPECTOR [address] [place] [address] [facility] [address] [place] [address] Referral ID Status Reason Start Date Expiration Date Visits Requested Visits Authorized [id number] Authorized Auto-Generat ed Referral 12/26/2022 12/26/2023 1 1 [facility] for referral (narrative)* Diagnostic Procedure Only (Routine) - Closed Specialty Diagnoses / Procedures [facility] Referred To Contact US IMAGING Diagnoses DUB (dysfunctional uterine bleeding) PCOS (polycystic ovarian syndrome) Procedures US FEMALE PELVIS TRANSVAG US TRANSVAGINAL Paola Reid APRN.CNP [address] [place] [address] [place] [address] Referral ID Status Reason Start Date Expiration Date V isits Requested Visits Authorized [id number] Closed Auto-Generate d Referral 12/12/2022 01/11/2024 1 1 [facility] for referral (narrative)* Diagnostic Procedure Only (Routine) - Closed Specialty Diagnoses / Procedures Referred By [facility] Referred To Contact US IMAGING Diagnoses Endometrial mass DUB (dysfunctional uterine bleeding) Procedures US FEMALE PELVIS TRANSVAG US TRANSVAGINAL Paola Reid APRN.CNP [address] [place] [address] [place] [address] Referral ID Status Reason Start Date Expiration Date V isits Requested Visits Authorized [id number] Closed Auto-Generate d Referral 01/01/2023 01/31/2024 1 1 [facility] for referral (narrative)* Outpatient Procedure (Routine) - Pending Review Specialty Diagnoses / Procedures Referred By [facility] Referred To Contact [facility] Diagnoses DUB (dysfunctional uterine bleeding) Procedures ENDOMETRIAL BIOPSY ENDOMETRIAL BX W/WO ENDOCERVIX BX W/O DILAT SPX Delfino Rodriguez MD [address] [place] [address] [facility] [address] [place] [address] Referral ID Status Reason Start Date Expiration Date Visits Requested Visits Authorized [id number] Pending Review Auto-Generat ed Referral 03/06/2023 03/05/2024 1 1 [facility] for visit Narrative* Diagnostic Procedure Only (Routine) - Closed Specialty Diagnoses / Procedures Referred By [facility] Referred To Contact US IMAGING Diagnoses DUB (dysfunctional uterine bleeding) PCOS (polycystic ovarian syndrome) Procedures US FEMALE PELVIS TRANSVAG US TRANSVAGINAL Paola Reid APRN.HIGHWAY INSPECTOR [address] [place] [address] [place] [address] Referral ID Status Reason Start Date Expiration Date V isits Requested Visits Authorized [id number] Closed Auto-Generate d Referral 12/12/2022 01/11/2024 1 1 [facility] Summary Purpose Family History No Family History Records FoundNo Family History Records FoundNo Family History Records FoundNo Family History Records Found Advance Directives No Advanced Directives Records FoundNo Advanced Directives Records FoundNo Advanced Directives Records FoundNo Advanced Directives Records Found Reason for Referral Specialty Diagnoses / Procedures Referred By Belen johnson Referred To Contact Diagnoses Loud snoring Daytime sleepiness Class 1 obesity with body mass index (BMI) of 34.0 to 34.9 in adult, unspecified obesity type, unspecified whether serious comorbidity present Procedures CONSULT TO SLEEP MEDICINE - ADULT Paola Reid APRN.HIGHWAY INSPECTOR [address] [place] [address] [facility] [address] [place] [address] Referral ID Status Reason Start Date Expiration Date Visits Requested Visits Authorized [id number] Ref Not Required PCP Requested Referral 3 03/11/2024 1 1 Additional Source Comments INFORMATION SOURCE (unrecogn ized section and content) DATE CREATED AUTHOR AUTHOR'S ORGANIZ ATION 07/06/2022 [facility] DATE CREATED AUTHOR AUTHOR'S ORGANIZ ATION 08/21/2022 [facility] DATE CREATED AUTHOR AUTHOR'S ORGANIZ ATION 05/21/2023 [facility] Source Comments (unrecognize d section and content) In the event this informatio n is protected by the Federal Confidentiality of Alcohol and Drug Abuse Patient Records regulations: The Federal rules restrict any use of the information to criminally investigate or prosecute any alcohol or drug abuse patient.[facility] the event this information is protected by the Federal Confidentiality of Alcohol and Drug Abuse Patient Records regulations: The Federal rules restrict any use of the information to criminally investigate or prosecute any alcohol or drug abuse patient.[facility] the event this information is protected by the Federal Confidentiality of Alcohol and Drug Abuse Patient Records regulations: The Federal rules restrict any use of the information to criminally investigate or prosecute any alcohol or drug abuse patient.[facility] the event this information is protected by the Federal Confidentiality of Alcohol and Drug Abuse Patient Records regulations: The Federal rules restrict any use of the information to criminally investigate or prosecute any alcohol or drug abuse patient.[facility] the event this information is protected by the Federal Confidentiality of Alcohol and Drug Abuse Patient Records regulations: The Federal rules restrict any use of the information to criminally investigate or prosecute any alcohol or drug abuse patient.[facility] the event this information is protected by the Federal Confidentiality of Alcohol and Drug Abuse Patient Records regulations: The Federal rules restrict any use of the information to criminally investigate or prosecute any alcohol or drug abuse patient.[facility] Reason for Visit (unrecogniz ed section and content) Reason Onset Date Comments Weight Management 12/26/2022 Reason Comments Radiology US Specialty Diagnoses / Procedures Referred By [facility] t Referred To Contact US IMAGING Diagnoses Endometrial mass DUB (dysfunctional uterine bleeding) Procedures US FEMALE PELVIS TRANSVAG US TRANSVAGINAL Paola Reid APRN.HIGHWAY INSPECTOR [address] [place] [address] Us Imaging [facility] Referral ID Status Reason Start Date Expiration Date V isits Requested Visits Authorized [id number] Closed Auto-Generate d Referral 01/01/2023 01/31/2024 1 1 Reason Comments Endometrial Biopsy Specialty Diagnoses / Procedures Referred By [facility] t Referred To Contact [facility] Diagnoses DUB (dysfunctional uterine bleeding) Procedures ENDOMETRIAL BIOPSY ENDOMETRIAL BX W/WO ENDOCERVIX BX W/O DILAT SPX Paola Reid APRN.HIGHWAY INSPECTOR [address] [place] [address] [facility] [address] [place] [address] Referral ID Status Reason Start Date Expiration Date V isits Requested Visits Authorized [id number] Closed Auto-Generate d Referral 12/26/2022 12/26/2023 1 1 Reason Comments Appointment Reason Comments Weight Management FOR RECORDS PERTAINING TO PATIENTS WHO ARE OR HAVE BEEN ENROLLED IN A CHEMICAL DEPENDENCY/SUBSTANCEABUSE PROGRAM, SOME INFORMATION MAY BE OMITTED. This clinical summary was aggregated from multiple sources. Caution should be exercised in using it in the provision of clinical care. This summary normalizes information from multiple sources, and as a consequence, information in this document may materially change the coding, format and clinical context of patient data. In addition, data may be omitted in some cases. CLINICAL DECISIONS SHOULD BE BASED ON THE PRIMARY CLINICAL RECORDS. [facility] [employer] [facility]. provides no warranty or guarantee of the accuracy or completeness of information in this document.
[2023-06-03 03:43] LABS: Internal QC Validated? YES +Cl - CLEAR BKGD; Pregnancy, Serum, hCG Quali. NEGATIVE Negative
[2023-06-03 03:50] LABS: ALB/GLOB Ratio 0.9 RATIO (0.9-2.4); AST(SGOT) 26 U/L (15-37); Alanine Aminotransfer ALT/SGPT 37 U/L (13-56); Albumin, Serum 3.5 g/dL (3.2-5.0); Alkaline Phosphatase 81 U/L (45-117); Anion Gap 6 (5-15); BUN 12 mg/dL (7-18); BUN/Creat Ratio 14.7 RATIO (10-20); Calcium,Total 9.2 mg/dL (8.5-10.1); Chloride 107 mmol/L (98-107); Creatinine, Serum 0.82 mg/dL (0.55-1.02); EST Glomerular Filtration Rate 86 mL/min (>60); Est Glom Filt Rate - Afr Amer 104 mL/min (>60); Estimated Creatinine Clearance 109.19 ml/min; Globulin 4.1 g/dL (2.2-4.2); Glucose 123 mg/dL (74-106); Lipase 43 U/L (13-75); Potassium 3.4 mmol/L (3.5-5.1); Protein, Total 7.6 g/dL (6.4-8.2); Sodium Level 138 mmol/L (136-145)
[2023-06-03 04:10] VITALS: BP 107/49; PULSE 89; RESP 16; TEMP 36.2; O2SAT 99
== END 2023-06-03 04:11 | disposition home or self-care (01) ==
PROVIDERS: Emergency Provider Emergency Medicine; PCP Family Medicine; Visit Provider Emergency Medicine
DX: K80.20 Calculus of gallbladder without cholecystitis without obstruction (principal); R10.84 Generalized abdominal pain; Z79.84 Long term (current) use of oral hypoglycemic drugs; Z79.899 Other long term (current) drug therapy; E66.9 Obesity, unspecified
CPT/HCPCS: 80053; 83690; 84703; 85025; 99282; A4216

== ENCOUNTER → 2024-01-15 | Outpatient (CLI) | payer MEDICAID, SELFPAY ==
--- NOTE | 2024-01-15 13:21 | US_ITS ---
STUDY: Ultrasound OB limited 1 or more fetus REASON FOR EXAM: Female, 33 years old GROWTH LMP: June 06 2023 correlating with 31 weeks 6 days and March 12, 2024 delivery date PRIOR ULTRASOUND: None. TECHNIQUE: Transabdominal OB ultrasound grayscale color flow and M-mode Doppler FINDINGS: There is a single intrauterine fetus. The fetus is in a cephalic presentation. There is demonstrated cardiac activity with a heart rate of 143 bpm. There is a normal amniotic fluid volume. The largest amniotic fluid pocket measures 5. cm. The amniotic fluid index (LONG) is [0.0 cm. The placenta is fundal There are Grade 0 placental changes. The cervix is obscured by cranial shadow BIOMETRY: BPD: 8.3 cm: 33 weeks, 2 days HC: 29.0 cm: 31 weeks, 6 days AC: 28.4 cm: 32 weeks, 3 days FL: 6.3 cm: 32 weeks, 3 days age by current US: 32 weeks, 0 days. SILAS by current US: March 11, 2024. Estimated weight: 2023 grams, +/- 304 grams, 65 percentile. US/OB Limited With Biometrics IMPRESSION: Single live intrauterine with normal heart rate. growth by biometry is concordant with provided dating. Normal LONG. Electronically Signed: Montrell Mancera MD at 8:50 EDT ,
== END | disposition home or self-care (01) ==
PROVIDERS: PCP Family Medicine; Referring Provider Advanced Practice Midwife; Visit Provider Advanced Practice Midwife
DX: O24.410 Gestational diabetes mellitus in pregnancy, diet controlled (principal); O09.93 Supervision of high risk pregnancy, unspecified, third trimester; Z3A.00 Weeks of gestation of pregnancy not specified
CPT/HCPCS: 76816

== ENCOUNTER 2024-03-05 07:29 | Inpatient (IN) | payer MEDICAID, SELFPAY ==
[2024-03-05] VITALS (85 sets, daily range): BP systolic 91–141; BP diastolic 52–88; PULSE 66–164; RESP 15–18; TEMP 35.6–36.4; O2SAT 83–100; BMI 32.9
[2024-03-05] MEDS: Lactated Ringers 1,000 ML 50 ML IV (07:55)
[2024-03-05 08:14] LABS: Absolute Lymphocyte Count 2.29 X10^3/uL (0.83-4.51); Absolute Neutrophil Count 7.4 X10^3/uL (2.0-7.7); Basophil# 0.03 X10^3/uL; Basophil% 0.3 % (0-1); Eosinophil# 0.05 X10^3/uL; Eosinophils% 0.5 % (0-5); Hematocrit 39.7 % (37-47); Hemoglobin 13.6 g/dL (12.0-15.0); Lymphocyte # 2.29 X10^3/ul (0.83-4.51); Lymphocyte % 21.5 % (19-41); Mean Corp Hgb Conc 34.3 g/dL (32-36); Mean Corpuscular Hgb 26.9 pg (27.0-32.0); Mean Corpuscular Volume 78.6 fL (81-99); Mean Platelet Vol. 11.1 fl (6.2-12.0); Monocyte# 0.76 X10^3/uL; Monocyte% 7.1 % (0-10); NRBC Flagged by Analyzer 0 % (0-5); Neutrophil # 7.38 X10^3/uL (2.7-7.7); Neutrophil % 69.4 % (47-70); Platelet Count 210 K/mm3 (150-450); RBC Distribution Width CV 14.6 % (11.6-14.6); RBC Distribution Width SD 40.6 fl (35.1-43.9); Red Blood Count 5.05 M/mm3 (4.2-5.4); White Blood Count 10.6 K/mm3 (4.4-11.0)
[2024-03-05 08:37] LABS: Bedside Glucose 100 mg/dL (74-106)
[2024-03-05] MEDS: Oxytocin 15 Units/NS 250ml 15 UNITS/250 ML IV.SOLN 2 UNITS IV (08:39)
[2024-03-05 08:44] LABS: Syphilis Antibodies Non-reactive
[2024-03-05] MEDS: Penicillin G Pot 5,000,000 UNITS in 0.9% Normal Saline (100mL MB+) 100 ML 150 UNITS IV (08:44)
--- NOTE | 2024-03-05 08:58 | PCM.HP.OB ---
HPI - General General Date of Admission: 03/05/24 HPI Narrative KRYS SOLORZANO, is a 33 F who presents for induction of labor at 39 weeks for GDMA1. Maternal Data Information SILAS Calculator Estimated Delivery Date Method Current WG Current Estimate 03/12/24 Manual 39w 0d PFSH PFS Medical History (Updated 03/05/24 @ 18:43 by Zully Delgado CNM) History of blood transfusion History of premature rupture of membranes (PPROM) depression Depression Pre-eclampsia Gestational diabetes Physical exam, pre-employment PCOS (polycystic ovarian syndrome) Home Medications ?Medication ?Instructions ?Recorded ?Last Taken ?Type bupropion HCl 150 mg tablet,12 hr 150 mg PO DAILY depression 06/03/23 Unknown History sustained-release drospirenone 3 mg-ethinyl 1 tab PO DAILY control 06/03/23 Unknown History estradiol 0.02 mg tablet (Loryna (28)) metformin 500 mg tablet 500 mg PO DAILY gestational 06/03/23 Unknown History diabetes phentermine 37.5 mg tablet 37.5 mg PO DAILY weight loss 06/03/23 Unknown History aspirin 81 mg capsule 81 mg PO DAILY prevent pre e 03/05/24 03/04/24 History vit no.133-ferrous 1 tab PO DAILY 03/05/24 03/04/24 History fumarate 28 mg-folic acid 800 mcg tablet () sertraline 50 mg tablet 50 mg PO DAILY depression 03/05/24 03/04/24 History Allergy/AdvReac Type Severity Reaction Status Date / Time Gadolinium-MRI Contrast Allergy Mild Hives Verified 03/05/24 07:47 Medium (contrast dye) Surgical History (Updated 03/05/24 @ 08:25 by Olivia Alvarez) History of surgery Social History Smoking Status: Never smoker History Elective abortions Hx Para 1 Spontaneous abortions Hx # Term Pregnancies Ectopic pregnancies Hx # Pregnancies Multiple births # of living children NST FHR Rate Baby A Baseline: 125 Variability:: Moderate Accelerations:: 15 x 15 Decelerations:: None FHR Category:: Category I Uterine Activity:: Irregular ROS Constitutional Constitutional: Reports systems reviewed and no addt'l complaints, except as documented; Denies headache(s) Eyes Eyes: Denies acute decrease in peripheral vision, blurry vision or change in vision ENT HEENT: Reports systems reviewed and no addt'l complaints, except as documented Cardiovascular Cardiovascular: Denies chest pain or dizziness Respiratory/Chest Respiratory/Chest: Denies cough, dyspnea, dyspnea on exertion, shortness of breath at rest or shortness of breath with exertion Gastrointestinal Gastrointestinal: Denies abdominal pain, diarrhea, nausea or vomiting Genitourinary Genitourinary: Denies abdominal discomfort Musculoskeletal Musculoskeletal: Denies limited range of motion Integumentary Integumentary: Reports systems reviewed and no addt'l complaints, except as documented Neurologic Neurologic: Reports systems reviewed and no addt'l complaints, except as documented Psychiatric Psychiatric: Reports systems reviewed and no addt'l complaints, except as documented Endocrine Endocrinology: Reports systems reviewed and no addt'l complaints, except as documented Hematologic/Lymphatic Hematologic/Lymphatic: Reports systems reviewed and no addt'l complaints, except as documented Allergic/Immunologic Allergic/Immunologic: Reports systems reviewed and no addt'l complaints, except as documented Vital Signs Vital Signs Vital Signs: 03/05/24 08:30 03/05/24 08:30 Pulse Rate 88 Blood Pressure 123/74 H BP Systolic 123 BP Diastolic 74 Weight Weight: 198 lb Body Mass Index (BMI) 32.9 Physical Exam Const alert and oriented x3 General Appearance: cooperative Orientation / Consciousness: awake, oriented to person, oriented to place and oriented to time Exam Limitations: no limitations HEENT normocephalic Head and Scalp: normal to inspection, normocephalic and atraumatic Face and Sinus: normal facial exam Eyes General Eye: normal appearance of both eyes Neck full ROM Chest Chest: symmetrical chest wall rise Resp normal respiratory effort and normal air movement Auscultation: clear to auscultation bilaterally Cardio regular rate, regular rhythm, S1 normal heart sound, S2 normal heart sound, no murmurs, no rub, no gallops and no clicks GI normal to inspection, nondistended, normoactive bowel sounds and non-tender appearance of the vagina normal Bladder / Kidney Exam: no CVA tenderness Back/Spine normal ROM Extremity normal to inspection and full ROM Skin no rashes or lesions noted Neuro oriented x3, CN's II-XII intact bilaterally and moves all extremities Sensorium / Orientation: awake, alert and oriented to person Motor Exam: clonus absent Deep Tendon Reflexes: Rt Patellar (L4): 2+ and Lt Patellar (L4): 2+ Labs Labs Labs: Blood Type O POSITIVE Antibody Screen NEGATIVE Hct 39.7 % (37-47) Hgb 13.6 g/dL (12.0-15.0) Obstetrics Ultrasound Syphilis Total Ab Non-reactive Hep C negative HIV negative HBSAG negative RPR negative 1hr GCT elevated, 3hr GTT positive for GDM O positive GC/CT negative GBS positive Rubella Assessment & Plan (1) Encounter for induction of labor: (2) Obesity (BMI 30.0-34.9): (3) Alpha thalassemia silent carrier: (4) History of pre-eclampsia: (5) History of depression: (6) GDM, class A1: PLAN: Plan 1) Admit to labor and delivery 2) Routine labs 3) Continuous EFM, pitocin for IOL 4) Pain management upon request 5) Dr. Underwood collaborative physician and notified of patient status, above assessment, and plan.
[2024-03-05 10:14] LABS: Bedside Glucose 83 mg/dL (74-106)
--- NOTE | 2024-03-05 11:45 | PCM.PN.OB ---
Subjective Subjective Comfortable in bed, at bedside Objective Data Objective Data Vital Signs: Vital Signs Temp Pulse Resp BP Pulse Ox 97.3 F L 82 16 128/82 H 100 03/05/24 10:55 03/05/24 10:56 03/05/24 10:55 03/05/24 10:55 03/05/24 10:56 Weight: 198 lb Body Mass Index (BMI) 32.9 Intake & Output: Intake and Output for Last 24 Hours 03/03/24 03/04/24 03/05/24 23:59 23:59 23:59 Intake Total 114.4 / 114.4 Balance 114.4 / 114.4 Lab / Micro Data 03/06/24 05:30 Labs: Laboratory Results - last 24 hr 03/05/24 07:55: WBC 10.6, RBC 5.05, Hgb 13.6, Hct 39.7, MCV 78.6 L, MCH 26.9 L, MCHC 34.3, RDW Std Deviation 40.6, RDW Coeff of Ida 14.6, Plt Count 210, MPV 11.1, Immature Gran % (Auto) 1.200 H, Neut % (Auto) 69.4, Lymph % (Auto) 21.5, Dewey % (Auto) 7.1, Eos % (Auto) 0.5, Baso % (Auto) 0.3, Absolute Neuts (auto) 7.4, Absolute Lymphs (auto) 2.29, Nucleated RBC % 0, Syphilis Total Ab Non-reactive, Blood Type O POSITIVE, Antibody Screen NEGATIVE 03/05/24 08:11: POC Glucose 100 03/05/24 09:08: POC Glucose 83 Physical Exam Narrative: 4.5/70/-1 AROM for light meconium stained fluid NST FHR Rate Baby A Baseline: 120 Variability:: Moderate Accelerations:: 15 x 15 Decelerations:: None FHR Category:: Category I Uterine Activity:: Every 2-4 minutes Assessment & Plan (1) Encounter for induction of labor: (2) GDM, class A1: PLAN: Plan 1) AROM 2) Rn Med Surg notified of [facility] for delivery attendance 3) Epidural for pain management upon request 4) Continue active management with pitocin 5) [facility] physician and notified of patient above assessment, plan, and status
[2024-03-05] MEDS: Penicillin G 3,000,000 Units 50 ML 100 UNITS IV ×2 (13:43→17:52)
[2024-03-05] MEDS: Lactated Ringers 1,000 ML 999 ML IV (13:53)
[2024-03-05 13:58] LABS: Bedside Glucose 74 mg/dL (74-106)
[2024-03-05] MEDS: fentaNYL-bupivacaine (epidural) 100 ML BAG EPIDURAL (15:09)
[2024-03-05 17:49] LABS: Bedside Glucose 68 mg/dL (74-106)
[2024-03-05 18:17] LABS: Bedside Glucose 72 mg/dL (74-106)
--- NOTE | 2024-03-05 18:41 | EX.PCM.OBVAG ---
Assessment & Plan (1) Vaginal delivery: (2) GDM, class A1: (3) History of depression: (4) History of pre-eclampsia: (5) Alpha thalassemia silent carrier: (6) Obesity (BMI 30.0-34.9): Maternal Data Information SILAS Calculator Estimated Delivery Date Method Current WG Current Estimate 03/12/24 Manual 39w 0d Vaginal Delivery Maternal Presentation Maternal Presentation: Medically Indicated Induction (GDMA1) Type of Induction: Pitocin Vaginal Delivery Information Procedure Performed: Spontaneous Vaginal Delivery Date of Procedure: 03/05/24 Pre-Procedure Diagnosis: Induction of labor due to GDMA1 Post-Procedure Diagnosis: Type of anesthesia: Epidural Estimated Blood Loss: 200 ml Time of Delivery: 18:28 Findings Description of procedure: Progressed to complete with urge to push. Epidural for pain management. Claims Consultant and respiratory in room for delivery due to meconium stained fluid. of viable female infant over intact perineum. APGARS 7,9 respectively. Infant head delivered with body immediately forthcoming. Placed on maternal abdomen, strong cry. Mouth and nares suctioned for secretions. Pitocin started for active 3rd stage management. Cord doubly clamped and cut by FOB after pulsations ceased, delayed cord clamping. Placenta delivered intact via blair, 3 vessel cord intact. Perineum inspected and revealed intact. Blood gases collected. Fundus firm and hemostasis achieved. EBL 200ml. Mom and baby stable, planning to breastfeed. Family bonding well. notified of delivery. Presentation: Vertex and JENNIFER Amniotic Membrane Rupture Type: Artificial Amniotic Fluid Description: Lightly stained meconium Placental Delivery Description: Spontaneous Placenta Disposition: [facility] Specimen collected: No Cord Vessel Description: 3 Vessels Cord Entanglement: None Cord Gases: ABG and VBG A Gender: Female (1 minute): 7 (5 minute): 9 Delayed Cord Clamping: Yes Community Health Consultant electric engine mechanic: No Post Vaginal Deli Medications given after delivery: IV Pitocin Episiotomy Description: None Laceration: None Complication Complications: No
[2024-03-05] MEDS: Oxytocin 15 Units/NS 250ml 15 UNITS/250 ML IV.SOLN 83 UNITS IV (19:02)
[2024-03-05 20:56] LABS: Bedside Glucose 119 mg/dL (74-106)
[2024-03-06 03:40] VITALS: BP 109/64; PULSE 74; PULSE 75; RESP 16; TEMP 37; O2SAT 99
[2024-03-06 05:46] LABS: Absolute Lymphocyte Count 2.45 X10^3/uL (0.83-4.51); Absolute Neutrophil Count 10.5 X10^3/uL (2.0-7.7); Basophil# 0.04 X10^3/uL; Basophil% 0.3 % (0-1); Eosinophil# 0.09 X10^3/uL; Eosinophils% 0.6 % (0-5); Hemoglobin 11.9 g/dL (12.0-15.0); Lymphocyte # 2.45 X10^3/ul (0.83-4.51); Lymphocyte % 17.2 % (19-41); Mean Corpuscular Hgb 26.9 pg (27.0-32.0); Mean Platelet Vol. 10.8 fl (6.2-12.0); Monocyte# 1.06 X10^3/uL; Monocyte% 7.4 % (0-10); NRBC Flagged by Analyzer 0 % (0-5); Neutrophil # 10.48 X10^3/uL (2.7-7.7); Neutrophil % 73.4 % (47-70); Platelet Count 194 K/mm3 (150-450); RBC Distribution Width CV 14.7 % (11.6-14.6); RBC Distribution Width SD 42.2 fl (35.1-43.9); Red Blood Count 4.43 M/mm3 (4.2-5.4); White Blood Count 14.3 K/mm3 (4.4-11.0)
[2024-03-06 05:50] LABS: Bedside Glucose 89 mg/dL (74-106)
--- NOTE | 2024-03-06 08:25 | PCM.PN.OB ---
Subjective Subjective Doing well per patient and nursing staff. Ambulating and taking PO without difficulty. Voiding and passing flatus. Pain controlled. , services for assistance. Denies headache, visual changes, chest pain, shortness of breath, leg pain or increased bleeding. Lochia normal. Objective Data Objective Data Vital Signs: Vital Signs Temp Pulse Resp BP Pulse Ox O2 Del Method 98.6 F 75 16 109/64 99 Room Air 03/06/24 03:40 03/06/24 03:40 03/06/24 03:40 03/06/24 03:40 03/06/24 03:40 03/06/24 03:40 Oxygen Delivery Method Room Air Weight: 198 lb Body Mass Index (BMI) 32.9 Intake & Output: Intake and Output for Last 24 Hours 03/04/24 03/05/24 03/06/24 23:59 23:59 23:59 Intake Total 2170.83 / 2170.83 Output Total 550 / 550 1150 / 1150 Balance 1620.83 / 1620.83 -1150 / -1150 Lab / Micro Data 03/06/24 05:30 Labs: Laboratory Results - last 24 hr 03/05/24 07:55: Syphilis Total Ab Non-reactive, Blood Type O POSITIVE, Antibody Screen NEGATIVE 03/05/24 08:11: POC Glucose 100 03/05/24 09:08: POC Glucose 83 03/05/24 13:29: POC Glucose 74 03/05/24 16:40: POC Glucose 68 L 03/05/24 17:46: POC Glucose 72 L 03/05/24 19:30: POC Glucose 119 H 03/06/24 05:26: POC Glucose 89 03/06/24 05:30: WBC 14.3 H, RBC 4.43, Hgb 11.9 L, Hct 35.0 L, MCV 79.0 L, MCH 26.9 L, MCHC 34.0, RDW Std Deviation 42.2, RDW Coeff of Ida 14.7 H, Plt Count 194, MPV 10.8, Immature Gran % (Auto) 1.100 H, Neut % (Auto) 73.4 H, Lymph % (Auto) 17.2 L, [place] % (Auto) 7.4, Eos % (Auto) 0.6, Baso % (Auto) 0.3, Absolute Neuts (auto) 10.5 H, Absolute Lymphs (auto) 2.45, Nucleated RBC % 0 ROS Constitutional Constitutional: Reports systems reviewed and no addt'l complaints, except as documented; Denies headache(s) Eyes Eyes: Denies acute decrease in peripheral vision, blurry vision or change in vision ENT HEENT: Reports systems reviewed and no addt'l complaints, except as documented Cardiovascular Cardiovascular: Denies chest pain or dizziness Respiratory/Chest Respiratory/Chest: Denies cough, dyspnea, dyspnea on exertion, shortness of breath at rest or shortness of breath with exertion Gastrointestinal Gastrointestinal: Denies abdominal pain, diarrhea, nausea or vomiting Genitourinary Genitourinary: Denies abdominal discomfort Musculoskeletal Musculoskeletal: Denies limited range of motion Integumentary Integumentary: Reports systems reviewed and no addt'l complaints, except as documented Neurologic Neurologic: Reports systems reviewed and no addt'l complaints, except as documented Psychiatric Psychiatric: Reports systems reviewed and no addt'l complaints, except as documented Endocrine Endocrinology: Reports systems reviewed and no addt'l complaints, except as documented Hematologic/Lymphatic Hematologic/Lymphatic: Reports systems reviewed and no addt'l complaints, except as documented Allergic/Immunologic Allergic/Immunologic: Reports systems reviewed and no addt'l complaints, except as documented Physical Exam Const alert and oriented x3 General Appearance: cooperative Orientation / Consciousness: awake, oriented to person, oriented to place and oriented to time Exam Limitations: no limitations HEENT normocephalic Head and Scalp: normal to inspection, normocephalic and atraumatic Face and Sinus: normal facial exam Eyes General Eye: normal appearance of both eyes Neck full ROM Chest Chest: symmetrical chest wall rise Resp normal respiratory effort and normal air movement Auscultation: clear to auscultation bilaterally Cardio regular rate, regular rhythm, S1 normal heart sound, S2 normal heart sound, no murmurs, no rub, no gallops and no clicks GI normal to inspection, nondistended, normoactive bowel sounds and non-tender GI Narrative: fundus firm 2 below U appearance of the vagina normal Bladder / Kidney Exam: no CVA tenderness Back/Spine normal ROM Extremity normal to inspection and full ROM Skin no rashes or lesions noted Neuro oriented x3, CN's II-XII intact bilaterally and moves all extremities Sensorium / Orientation: awake, alert and oriented to person Motor Exam: clonus absent Deep Tendon Reflexes: Rt Patellar (L4): 2+ and Lt Patellar (L4): 2+ Assessment & Plan (1) Vaginal delivery: (2) GDM, class A1: PLAN: Plan 1) Routine care, PPD #1 2) Vitals signs stable 3) Pain controlled 4) , services PRN 5) D/C home 6) Follow up in 2 weeks and 6 weeks
--- NOTE | 2024-03-06 08:26 | DS.PCM_ITS ---
Providers Date of Admission: 03/05/24 Date of Discharge: 03/06/24 Primary Care Physician: Jenifer Carreon PA-C Reason For Visit: INDUCTION Diagnosis Discharge Diagnosis (1) Vaginal delivery: Status: Acute Code(s): O80 - Encounter for full-term uncomplicated delivery (2) GDM, class A1: Status: Acute Code(s): O24.410 - Gestational diabetes mellitus in , diet controlled Plan 1) Routine care, PPD #1 2) Vitals signs stable 3) Pain controlled 4) , services PRN 5) D/C home 6) Follow up in 2 weeks and 6 weeks Medications at Discharge Home Medications vit no.133-ferrous fumarate 28 mg-folic acid 800 mcg tablet () 1 tab PO DAILY 03/05/24 sertraline 50 mg tablet 50 mg PO DAILY depression 03/05/24 acetaminophen 500 mg tablet 1,000 mg (2 x 500 mg) PO Q6H PRN PRN Pain 1-10 Or Fever #0 tabs 03/06/24 ibuprofen 600 mg tablet 600 mg PO Q6H PRN PRN Pain Score 1-10 #0 tabs 03/06/24 Hospital Course Summary of Care Provided Minutes Spent on Discharge: 15 Weight / BMI Weight Weight: 198 lb Body Mass Index (BMI) 32.9 ABG / Lab / Microbiology Data 03/06/24 05:30 Laboratory: Laboratory Results - last 24 hr 03/05/24 07:55: Syphilis Total Ab Non-reactive, Blood Type O POSITIVE, Antibody Screen NEGATIVE 03/05/24 08:11: POC Glucose 100 03/05/24 09:08: POC Glucose 83 03/05/24 13:29: POC Glucose 74 03/05/24 16:40: POC Glucose 68 L 03/05/24 17:46: POC Glucose 72 L 03/05/24 19:30: POC Glucose 119 H 03/06/24 05:26: POC Glucose 89 03/06/24 05:30: WBC 14.3 H, RBC 4.43, Hgb 11.9 L, Hct 35.0 L, MCV 79.0 L, MCH 26.9 L, MCHC 34.0, RDW Std Deviation 42.2, RDW Coeff of Ida 14.7 H, Plt Count 194, MPV 10.8, Immature Gran % (Auto) 1.100 H, Neut % (Auto) 73.4 H, Lymph % (Auto) 17.2 L, [place] % (Auto) 7.4, Eos % (Auto) 0.6, Baso % (Auto) 0.3, Absolute Neuts (auto) 10.5 H, Absolute Lymphs (auto) 2.45, Nucleated RBC % 0 D/C Instructions Discharge Diet: No restrictions Discharge Activity: Return to Normal Activity, May Drive, May Shower and May Take a Tub Bath May resume sexual activity in: 6 weeks Weight Bearing Status: Full weight bearing Call your doctor if you observe: Fever of 101 or Higher, Inability to urinate, Using more than 1 pad per hour, Shortness of breath, Chest pain, Increased palpitations (irregular heartbeat), Calf discomfort and Uncontrolled pain Please Follow Up With: Zully Delgado CNM When: 2 week virtual visit and 6 week visit Meaningful Use Info Meaningful Use Meaningful Use Diagnoses (Choose all that apply): None applicable Ischemic Stroke Statin Dosing Therapy Reference: STATIN DOSE THERAPY REFERENCE: * Patients > 75 years receive moderate or high dose statin therapy. * Patients 75 years or YOUNGER should receive HIGH intensity statin dose unless contraindicated. You will be required to document reason for non-treatment if statin daily dose does not meet guidelines. HIGH DOSE STATIN THERAPY DAILY Atorvastatin > than or = to 40 mg Rosuvastatin > than or = to 20 mg Amlodipine + Atorvastatin > than or = to 2.5/40 mg Ezetimibe + Simvastatin 10/80 mg Simvastatin 80mg Discharge Plan Admission Admit Date/Time: 03/05/24 07:29 Primary Reason for Your Visit: Vaginal Delivery Attending Provider: Zully Delgado Primary Care Provider: Jenifer Carreon Discharge Orders/Prescriptions Prescriptions: New acetaminophen 500 mg Tablet 1,000 mg PO Q6H PRN PRN (Reason: Pain 1-10 Or Fever) Qty: 0 0RF ibuprofen 600 mg Tablet 600 mg PO Q6H PRN PRN (Reason: Pain Score 1-10) Qty: 0 0RF Continued sertraline 50 mg tablet 50 mg PO DAILY 28-800 mg-mcg tablet 1 tab PO DAILY Discontinued bupropion HCl 150 mg tablet sustained-release 12 hr 150 mg PO DAILY Patient Comments: TAKE 1 TABLET BY MOUTH TWICE DAILY drospirenone-ethinyl estradiol [Loryna (28)] 3-0.02 mg tablet 1 tab PO DAILY Patient Comments: TAKE 1 TABLET BY MOUTH ONCE DAILY metformin 500 mg tablet 500 mg PO DAILY phentermine 37.5 mg tablet 37.5 mg PO DAILY Patient Comments: TAKE 1 TABLET BY MOUTH ONCE DAILY BEFORE BREAKFAST FOR 90 DAYS aspirin 81 mg capsule 81 mg PO DAILY Referrals / Follow Up: Jenifer Carreon, PA-C [Primary Care Provider] - Disposition Disposition (needs filled in before D/C Order can be placed): Home, Self Care
[2024-03-06 08:27] VITALS: BP 117/62; PULSE 76; RESP 16; TEMP 36.8; O2SAT 98; O2SAT 99
[2024-03-06] MEDS: Acetaminophen 500 MG Tablet 1000 MG PO (08:35)
[2024-03-06] MEDS: Sertraline 50 MG Tablet PO (11:51)
[2024-03-06] MEDS: Prenatal Vits Tablet 1 TABLET PO (11:51)
[2024-03-06 11:56] VITALS: BP 105/58; PULSE 82; O2SAT 100
[2024-03-06 12:00] VITALS: BP 105/58; PULSE 83; RESP 14; TEMP 36.3; O2SAT 100
--- NOTE | 2024-03-06 12:25 | CASEMGMT ---
Social Work Assessment Labor and Delivery Unit Patient Address: [address] [place] [address] [address]? ?[place] [address] Phone number: Date of Referral: 03/06/2024 Time of Referral: 06:12 Referred By: Zully Delgado Date of Intervention: 03/06/2024 Time of Intervention: 12:25 Reason for Referral: Mental Health/Depression/PPD History obtained from: Medical records and mother of baby (MOB). Household composition: MOB (Darlin, age 33), father of baby (FOB) (Nima ?Eber?, age 45) and their 21 month old son Iftikhar and daughter Lv, born 03/05/2024. Patient's parent/guardian status: MOB and FOB have been together for almost 4 years and for 3 years. ??Both are actively involved and will be providing care for baby. MOB denied any concerns with domestic violence and described a positive and supportive relationship with the FOB. Medical History: : 2, Para: Now 2. MOB received care through [facility] beginning at 8 weeks and 0 days. Visits were routine. Apgars: 7 and 9. Weight: 6lbs., 9 oz. Certified Physical Therapist Assistant: Dr. Mery aRmos. ? Educational Status: MOB denied any issues or concerns with reading or writing. MOB and FOB both earned their high school diploma. Financial Status: MOB reported the household income is sufficient to meet the needs of her family at this time. 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 Infant Supplies: BAMBI reported she has all the supplies she needs for at this time including but not limited to: Car seat, bassinet, crib, diapers, bottles, breast pump and clothing. Childcare/Caregiver(s): MOB identified herself as the person who will be the primary caregiver for and ?s sibling since she is a SAHM however also reported that the FOB will also help provide care when not working as well as FOB?s aunt who lives locally and MOB?s methodist friends as needed. Transportation: MOB reported both she and the FOB are both licensed drivers and have a reliable vehicle to take to and from all medical appointments. No transportation issues identified. Programs/Agencies Involved: Current agencies involved include: [employer] (Medicaid) and WIC. No other agencies involved at this time. ? Children Services/Legal Issues:? Denied. Behavioral Health Issues: ??Mental Health History: BAMBI has a history of PPD and Depression and is currently on Zoloft. MOB reported her depression is managed at this time. MOB denied any menta health issues with the FOB. ?Substance Use History: Denied.?Family History: ?Denied.?? Drug Screens: ?None obtained at the time of this admission. ?church worker administered the [place].? MOB?s score was 0.? church worker provided verbal education about the screening tool as well as scores to look out for in the future which MOB reported she understood. Family/Social Stressors: MOB denied any current family or social stressors. Support Systems: Ample.? MOB identified her biggest supports as the FOB and the FOB?s aunt and uncle, both who live locally.? MOB also reported she has a strong support group of ladies through her methodist. Depression/Shaken Baby/Safe Sleeping: church worker provided verbal and written education on PPD, Safe Sleeping and Shaken Baby. MOB verbalized an understanding. ??? ASSESSMENT: MOB provided consent to social work visit. Upon arrival, BAMBI was in the hospital bed holding .? MOB was very attentive to , gentle and verbally expressed how excited she was for ?s arrival. During the visit, MOB changed ?s diaper, fed and made sure was dressed warmly. MOB smiled when talking about and appeared to be attached and bonded.? FOB was not present at the time of the visit.? MOB reported the FOB went home last evening so help the paternal grandmother (PGM) who is in from [place] visiting for a few days to help out however needed. MOB reported feeling safe at home and denied any previous or current domestic violence. Safe Plan of Care for related to substance use: N/A; not needed. ? PLAN:? Baby to be discharged home when ready.? church worker also provided written information on depression, depression resources and Help Me Grow as additional resources offered by social media strategist which MOB accepted. No other services requested or indicated. Yeimy Aly, DIRECTOR OF CONSTRUCTION, GRINDER SET UP OPERATOR [employer]
[2024-03-06 18:37] VITALS: BP 131/74; PULSE 92; PULSE 93; RESP 14; TEMP 37.1; O2SAT 98
--- NOTE | 2024-03-10 12:36 | NURSING ---
F/up phone call performed-- pt. reports she has been feeling okay. Pt. reports minimal lochia-- no s+s of complications-- just soreness still. Feeding going well. Family denies questions or concerns. Encouragement and support given.
== END 2024-03-06 19:55 | disposition home or self-care (01) | DRG 560 ==
PROVIDERS: Admitting Provider Advanced Practice Midwife; PCP Family Medicine; Referring Provider Advanced Practice Midwife; Visit Provider Advanced Practice Midwife
DX: O24.420 Gestational diabetes mellitus in childbirth, diet controlled (principal); Z37.0 Single live birth; D56.3 Thalassemia minor; O99.214 Obesity complicating childbirth; O99.02 Anemia complicating childbirth; O77.0 Labor and delivery complicated by meconium in amniotic fluid; Z79.82 Long term (current) use of aspirin; Z79.899 Other long term (current) drug therapy; Z3A.39 39 weeks gestation of pregnancy
CPT/HCPCS: 59025; 59050; 82962; 85025; 86780; 86850; 86900; 86901; 99221; J7120; G0378